=== PATIENT | male | born 1940 | race Caucasian/White ===

== ENCOUNTER 2020-09-10 13:30 | Outpatient (RCR) | payer MEDICARE, SELFPAY ==
--- NOTE | 2020-08-18 16:15 | PTOPEVAL ---
INITIAL PHYSICAL THERAPY EVALUATION and PLAN OF CARE Thank you for referring Rich Coelho to [facility].? Rich is scheduled to be seen for physical therapy? 1-2x/week for 4 weeks. Please review, sign, date and return this plan of care DOM. I agree with and certify that the following plan of care is medically necessary. Referring Physician Date Admitting Provider: Attending Provider: Yung Levin, Referring Provider: *PT Outpatient Evaluation Start: 08/18/20 14:39 Freq: Status: Active Protocol: Document 08/18/20 14:39 ANGELA (Rec: 08/18/20 16:14 ANGELA [id number]) Therapy Assessment Status Assessment Status Assessment Status Evaluation Outpatient Past Medical History Past Medical History Source of Past Medical History Patient Neurological History Hx Transient Ischemic Attacks (TIA) Yes: transient L hand weakness Respiratory History Hx Respiratory Disorders No Significant History Gastrointestinal History Hx Gastrointestinal Disorders No Significant History Genitourinary History Hx Genitourinary Disorders No Significant History Musculoskeletal History Hx Back Pain Yes: receiving injections SIJ Hx Other Musculoskeletal Disorders Yes: R hip adductor strained, neck pain Endocrine History Hx Diabetes Yes Evaluation Information Problem Diagnosis Poor balance Onset ~5 years Subjective Information 2 falls within last few days - Query Text:As Reported By Patient/ tripped over slider threshold Family - didn't fully clear L foot, fell forward Other fall - loss balance backwards - unable to catch balance - fell backwards Has had episodes with losing balance posteiorly but usually catches himself. Pt states that he was going to hospital for PT - fell off of the ball R thigh went into abduction - increased strain with hip adductors Feeling weakness with both thighs/ Quads. 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 Wears foot orthotics, BEAST model of Estevez shoes. 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
--- NOTE | 2020-09-15 10:35 | PCPTNOTE ---
Patient called & cancelled scheduled appointment this date due to illness. Today was his re-eval appointment. He is to call back to reschedule this appointment.
--- NOTE | 2020-09-24 16:12 | PCPTNOTE ---
PHYSICAL THERAPY DISCHARGE SUMMARY Admitting Provider: Attending Provider: Yung Levin, Patient:Rich Coelho Date of :1940 Rich has not returned for any further treatments since 09/10/2020, therefore he will be discharged at this time. Patient?s initial visit was on 08/18/2020 14:30 and he had a total of 7 visits. He called to cancel his 09/15/2020 re-evaluation appointment due to illness. I phoned his home 09/22/2020 and left a phone message in regards to how he was doing and if he would want to reschedule his re-evaluation appointment. I have not heard back from him. The goals have generally been met. I was unable to retest TUG, Buchanan balance, and 5 sit to stand tests. He has not had a fall since his initial appointment and he was doing well with all of the balance activities in PT treatment. Thank you for referring Rich to [facility]. Please review, sign, date and return this discharge summary DOM. I have been updated about Rich's current status and I agree with discharge from the above service at this time. Referring Physician Date
== END 2020-09-27 11:33 | disposition home or self-care (01) ==
LOC: ANHHIPT 13:30
PROVIDERS: PCP Internal Medicine; Visit Provider Internal Medicine
DX: R26.81 Unsteadiness on feet (principal)
CPT/HCPCS: 97110; 97162

== ENCOUNTER 2022-07-27 13:04 | Inpatient (IN) | payer MEDICARE, SELFPAY ==
--- NOTE | ~2022-07-27 | US_ITS ---
EXAMINATION: US venous doppler [facility] DATE: 07/27/2022 14:45 INDICATION: Left lower limb pain and swelling. TECHNIQUE: Grayscale ultrasound images without and with compression and Doppler ultrasound images of the left lower extremity veins were obtained. COMPARISON: None. FINDINGS: The visualized portions of left common femoral vein, profunda (deep) femoral vein, femoral vein, popl iteal vein, peroneal veins, posterior tibial veins, and greater saphenous vein outflow are patent. IMPRESSION: 1. No deep venous thrombosis. Reviewed, dictated and finalized at location A.
--- NOTE | ~2022-07-27 | XR_ITS ---
EXAMINATION: XR foot LT min 3V DATE: 07/27/2022 13:25 INDICATION: Wound with erythema at the plantar left forefoot TECHNIQUE: Dorsoplantar, two oblique and lateral views of the left foot were obtained. COMPARISON: None. FINDINGS: Bone alignment is normal. No fracture. Heterotopic ossicles along the tip the medial malleolus likely sequela of chronic medial ankle sprain. Mild polyarticular osteoarthritis at the first and fifth met atarsophalangeal joints and multiple tarsometatarsal and interphalangeal joints. No cortical erosions or periosteal reaction to suggest osteomyelitis. Moderate-sized plantar calcaneal spur. Scattered va scular calcifications. Soft tissues are otherwise unremarkable. IMPRESSION: 1. Mild polyarticular osteoarthritis in the mid and forefoot. No acute osseous abnormality. Reviewed, dictated and finalized at location A.
--- NOTE | ~2022-07-27 | CT_ITS ---
EXAMINATION: CTA BRAIN/CAROTID DATE: 07/28/2022 10:56 INDICATION: Right-sided facial droop TECHNIQUE: Computed tomographic angiography (CTA) of the head and neck was performed with 100 mL Omni paque-350 intravenous contrast. Multiplanar reconstructions and maximum intensity projection 3D-recon structions of the carotid arteries and of the intracranial arteries were created by the technologist on a separate workstation. Precontrast CT of the head was also obtained. Automated exposure control and iterative reconstruction technique were employed.The dose-length product was 1800.12 mGy-cm. COMPARISON: None. FINDINGS: Carotid arteries: Minimal atherosclerotic plaque at the visualized aortic arch which along with the great vessels arisi ng from the arch is otherwise normal with no aneurysm, dissection or stenosis. There is minimal amoun t of atherosclerotic plaque with 0% stenosis of the right carotid bulb relative to normal distal kevin ry lumen diameter (NASCET criteria). There is no evident plaque with 0% stenosis of the left carotid bulb relative to normal distal artery lumen diameter. The soft tissues are unremarkable. Visualized l ungs are clear. Cervical spondylosis with moderate disc height loss at T2-C4 and mild disc height los s at C2 5 C6 and multilevel bilateral moderate and severe cervical facet osteoarthritis. Head: No acute intracranial hemorrhage, acute infarction or abnormal extra axial fluid collection. Small ol d lacunar infarct at the anterior limb of the right internal capsule. There is mild scattered white m atter hypoattenuation consistent with chronic small vessel ischemic disease. Symmetric prominence of the sulci and subarachnoid spaces overlying the convexities consistent with mild age-appropriate diff use cerebral volume loss. Ventricles are normal and symmetric. No mass/mass effect. The orbits, paran sincere sinuses and mastoid air cells are normal. Intracranial arteries Small amount of nonhemodynamically significant atherosclerotic plaque at the bilateral carotid siphon s. There is no hemodynamically significant stenosis in the vertebral, basilar and internal carotid ar teries. Vertebral arteries are codominant. There are no aneurysms identified. Both A1 and P1 segment s are patent. Cerebral arterial arborization appears symmetric. No abnormally enhancing brain lesion s. IMPRESSION: 1. 0% stenosis of the right and left carotid bulbs relative to normal distal artery lumen diameter (N ASCET criteria). 2. Normal cerebral CT angiogram. 3. 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 4. Age-related changes in the brain including mild cerebral atrophy and mild scattered white matter h ypoattenuation consistent with chronic small vessel ischemic disease. Reviewed, dictated and finalized at location A. IMPRESSION: 1. 0% stenosis of the right and left carotid bulbs relative to normal distal ar mu lumen diameter (NASCET criteria). 2. Normal cerebral CT angiogram. 3. 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 4. Age-related changes in the brain including mild cerebral atrophy and mild sc attered white matter hypoattenuation consistent with chronic small vessel ische jennifer disease.
--- NOTE | ~2022-07-27 | MR_ITS ---
EXAMINATION: MR brain/brain stem wo con DATE: 07/28/2022 16:42 INDICATION: Facial weakness. TECHNIQUE: Magnetic resonance imaging (MRI) of the brain and brainstem was performed without intraven ous contrast. COMPARISON: Head CT 07/28/2022 FINDINGS: There is a small area of encephalomalacia in left thalamus with focus of old blood products . There are scattered areas of nonspecific increased T2-weighted signal intensity in the cerebral whi te matter and melita. There is no acute ischemic infarct or abnormal mass lesion. There is an old infar ct involving the genu of the right internal capsule. The ventricles are normal in size. There is an o ld blowout fracture of medial wall of right orbit. There is mild mucosal thickening in the paranasal sinuses. The mastoid air cells are normal. IMPRESSION: 1. 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 2. Small area of old encephalomalacia in left thalamus. 3. Moderate nonspecific cerebral white matter disease, which likely represents chronic small vessel i schemic disease. Reviewed, dictated and finalized at location A. IMPRESSION: 1. 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 2. Small area of old encephalomalacia in left thalamus. 3. Moderate nonspecific cerebral white matter disease, which likely represents chronic small vessel ischemic disease.
--- NOTE | ~2022-07-27 | CT_ITS ---
EXAMINATION: CT foot LT wo con DATE: 07/27/2022 14:50 INDICATION: Left foot cellulitis. TECHNIQUE: Computed tomography (CT) of the left foot was performed without intravenous contrast. Auto mated exposure control and iterative reconstruction technique were employed. The dose-length product was 560.01 mGy-cm. COMPARISON: Left foot radiographs 07/27/2022 FINDINGS: There is severe fatty atrophy of much of the musculature. Vascular calcifications are noted . There is an ulcer medial to head of first metatarsal. Bone alignment is normal. No fracture. There is heterotopic ossification distal to medial malleolus. There is a well-corticated erosion at medial aspect of head of first metatarsal. There is mild osteoarthritis of ankle joint, subtalar joint, and many of the midfoot joints and forefoot joints. There are enthesophytes at the posterior and plantar aspects of calcaneal tuberosity. There is thickening of the plantar fascia, consistent with fasciitis . IMPRESSION: 1. Well-corticated erosion at medial aspect of head of first metatarsal. This finding may be secondar y to chronic osteomyelitis or gout. 2. Mild polyarticular osteoarthritis. Reviewed, dictated and finalized at location A. IMPRESSION: 1. Well-corticated erosion at medial aspect of head of first metatarsal. This f inding may be secondary to chronic osteomyelitis or gout. 2. Mild polyarticular osteoarthritis.
--- NOTE | ~2022-07-27 | XR_ITS ---
EXAMINATION: XR chest PICC line DATE: 08/01/2022 12:05 INDICATION: Central line placement. TECHNIQUE: A single frontal view of the chest was obtained. COMPARISON: None. FINDINGS: The lung volumes are small. There are airspace opacities at left lung base. Calcified left lung nodules and calcified left hilar lymph nodes are consistent with old granulomatous disease. No p leural effusion or pneumothorax. The heart size is normal. A left upper extremity peripherally insert ed central venous catheter (PICC) is seen with tip in the superior vena cava. IMPRESSION: 1. PICC tip in superior vena cava. 2. Airspace opacities at left lung base, consistent with atelectasis versus pneumonia. Reviewed, dictated and finalized at location A. IMPRESSION: 1. PICC tip in superior vena cava. 2. Airspace opacities at left lung base, consistent with atelectasis versus pne umonia.
[2022-07-27 13:07] VITALS: BP 190/72; PULSE 80; RESP 16; TEMP 36.3; O2SAT 96
[2022-07-27 13:25] LABS: Basophils Percent Auto 0.4 % (0.2-1.2); Eosinophils Percent Auto 0.2 % (0-4.4); Hematocrit 42.1 % (42.0-52.0); Hemoglobin 14.6 g/dL (14.0-18.0); Immature Granulocyte Absolute 0.04 K/mm3 (0.00-0.031); Immature Granulocyte Percent A 0.4 % (0-0.5); Lymphocytes Absolute Auto 1.23 K/mm3 (0.9-3.2); Lymphocytes Percent Auto 13.1 % (18.3-44.2); Mean Corpuscular HGB Conc 34.7 g/dl (32-36); Mean Corpuscular Hemoglobin 34.1 pg (26-34); Mean Corpuscular Volume 98.4 fl (80-100); Mean Platelet Volume 9.9 fl (7.4-10.4); Monocytes Absolute Auto 0.6 K/mm3 (0.1-0.6); Monocytes Percent Auto 6.8 % (2.6-8.5); Neutrophils Absolute Auto 7.4 K/mm3 (1.3-6.7); Neutrophils Percent Auto 79.1 % (45.5-73.1); Platelet Count Result 198 k/mm3 (150-375); Red Blood Count 4.28 M/mm3 (4.6-6.20); White Blood Count 9.4 K/mm3 (4.5-10.0)
[2022-07-27 13:36] LABS: Lactic Acid Reflex 3.7 mmol/L (0.7-2.0)
[2022-07-27 13:39] LABS: Alanine Aminotransferase 29 U/L (6-50); Albumin Level 4.4 g/dL (3.5-5.1); Alkaline Phosphatase 108 U/L (38-126); Anion Gap 17 mmol/L (8-16); Aspartate Amino Transferase 23 U/L (17-59); Bilirubin,Total 1.2 mg/dL (0.2-1.3); Blood Urea Nitrogen 19 mg/dL (9-20); CRP 5.2 mg/dL (<1.0); Calcium 9.4 mg/dL (8.4-10.2); Carbon Dioxide 26 mmol/L (22-30); Chloride 94 mmol/L (98-107); Estimated CRCL calculation 59 ml/min; Estimated Glomerular Filt Rate > 60; Glucose 453 mg/dL (65-110); Potassium 4.8 mmol/L (3.4-5.0); Sodium 137 mmol/L (137-145)
--- NOTE | 2022-07-27 14:14 | ED.WOUNDLAC ---
HPI - Wound/Laceration General Chief Complaint: Wound/Laceration Stated Complaint: infection to foot Time Seen by Provider: 07/27/22 13:52 History of Present Illness HPI narrative: 82-year-old male presents to the emergency room today for redness swelling and open wound to the bottom of his left foot. He reports that he noticed the blister on the bottom of his foot about a week ago and peeled the skin away. He he was seen by his primary care provider and another provider as well. He was prescribed doxycycline which she did not take. He was prescribed Keflex yesterday and he has taken 1 dose of this. The wound on the bottom of his foot has a black center. He has redness around the wound and to the top of his left foot. He says that it feels sore. He has a history of diabetic neuropathy. He has had some increased soreness and swelling going up the left leg. He denies having any fever or chills. Related Data Home Medications Medication Instructions Recorded Confirmed aspirin 81 mg tablet,delayed 81 mg PO DAILY 07/20/22 07/20/22 release (Adult Low Dose Aspirin) atorvastatin 20 mg tablet 20 mg PO DAILY 07/20/22 07/20/22 cholecalciferol (vitamin D3) 50 50 mcg PO DAILY 07/20/22 07/20/22 mcg (2,000 unit) capsule clopidogrel 75 mg tablet (Plavix) 75 mg PO DAILY 07/20/22 07/20/22 ezetimibe 10 mg tablet (Zetia) 10 mg PO DAILY 07/20/22 07/20/22 metformin 500 mg tablet 1,000 mg PO BID 07/20/22 07/20/22 omega 5-zxi-mqe-fish oil 300 1 cap PO DAILY 07/20/22 07/20/22 mg-1,000 mg capsule (Fish Oil) Allergies Allergy/AdvReac Type Severity Reaction Status Date / Time No Known Allergies Allergy Unverified 07/26/22 15:48 Review of Systems Review of Systems: CONSTITUTIONAL: Denies fever, chills, or sweats. EYES: Denies visual changes, redness, or discharge. ENT: Denies rhinorrhea, congestion, sore throat, or otalgia. CARDIOVASCULAR: Denies chest pain, palpitations, or edema. RESPIRATORY: Denies cough or dyspnea. GASTROINTESTINAL: Denies abdominal pain, nausea, vomiting, or diarrhea. GENITOURINARY: Denies dysuria or hematuria. SKIN: As per HPI MUSCULOSKELETAL: Left foot pain NEUROLOGIC: Denies headache, numbness, dizziness, or weakness. PSYCHIATRIC: Denies anxiety or depression. PMFSH Past Medical History Medical History Degenerative disc disease Diabetes Left foot drop Peripheral neuropathy TIA (transient ischemic attack) Social History Social History Smoking status: Never smoker Alcohol intake: never Substance use: never Gender identity (if verbalized by the patient): Male Agree to blood products: Yes Exam Narrative: GENERAL: Well-appearing, well-nourished, and in no acute distress. HEAD: Normocephalic, atraumatic. EYES: PERRLA and EOMI. NECK: Supple. No adenopathy or masses. No carotid bruits or JVD CHEST: Clear to auscultation. No respiratory distress. No wheezes rales or rhonchi HEART: Regular rate and rhythm. faint systolic murmur heard. Normal peripheral pulses. ABDOMEN: Soft, nontender, nondistended, normal active bowel sounds. EXTREMITIES: Normal range of motion. No edema. SKIN: open wound to the plantar surface of left foot, about 2 inch diameter with black eschar, skin thickening noted medially, erythema around the wound and to the entire great toe and medial dorsal surface of the foot, pulses intact NEURO: No focal deficits. Alert and oriented x3. PSYCH: Normal mood and affect. Course Course Emergency Course: 1529 Discussed with Mohini Vera NP, accepting patient for admission for cellulitis and diabetic foot ulcer. 1814 Dr. Xiong is signed out. General surgery consulted, Dr. Crook, for management of the foot ulcer. Vital Signs Vital signs: Vital Signs Temperature 36.3 C L 07/27/22 13:07 Pulse Rate 80 07/27/22 13:07 Respiratory Rate 16 07/27/22 13:07
[2022-07-27] MEDS: INSULIN HUMAN REGULAR (*BKC) 100 UNITS/ML 11 UNITS IV PUSH (14:48)
[2022-07-27 15:05] LABS: Appearance Urine Clear (Clear); Bilirubin Urine Negative (Negative); Blood Urine Negative (Negative); Color Urine Yellow (Yellow); Glucose Urine UA 3+ mg/dL (Negative); Ketones Urine Trace mg/dL (Negative); Leukocyte Esterase Ur Negative LEU/UL (Negative); Nitrate Urine Negative (Negative); Protein Urine Negative (Negative); Urobilinogen Urine 0.2 mg/dL (<2.0)
[2022-07-27 15:06] LABS: RBC Urine 0-2 /hpf (0-2); WBC Urine 0-3 /hpf
[2022-07-27 15:14] LABS: Add Urine Microscopic? YES
[2022-07-27 15:29] LABS: Beta-Hydroxybutyrate/Acetoacetate 0.21 mmol/L (0.02-0.27)
[2022-07-27] MEDS: SODIUM CHLORIDE 0.9% IV 500 ML IV CONT (16:00)
[2022-07-27 16:01] VITALS: BP 124/69; PULSE 65; RESP 17; O2SAT 98
[2022-07-27 16:07] LABS: Glucose Point of Care 356 mg/dl (65-105)
[2022-07-27 16:23] LABS: Reflex Lactic Acid Yes or No Add Lactic
[2022-07-27 16:54] LABS: Lactic Acid 2.2 mmol/L (0.7-2.0)
[2022-07-27 18:27] VITALS: BMI 33.6
[2022-07-27 18:30] VITALS: BMI 33.5
[2022-07-27 18:30] LABS: Glucose Point of Care 348 mg/dl (65-105)
[2022-07-27 18:31] VITALS: BP 168/75; PULSE 77; RESP 16; TEMP 35.9; O2SAT 96
[2022-07-27] MEDS: INSULIN ASPART (*BKC) 100 UNITS/ML 8 UNITS SUB-Q (18:36)
[2022-07-27 18:40] VITALS: O2SAT 96
--- NOTE | 2022-07-27 18:47 | ADMGEN ---
This patient, Rich Coelho, was admitted to 3 [facility] Surg Room 303-01 at 1810. Patient/family oriented to hospital policies and general routines including ID bracelet, bed and alarms, visiting hours, pain management, procedures, bathroom and other care routines, personal items, smoking policy, room service/diet, and visiting hours. Information on how to activate the Rapid Response Team has been discussed. Patient/Family are encouraged to report perceived risks to care and to ask questions if they do not understand what they are told or what they should do.
--- NOTE | 2022-07-27 20:01 | PM.IMHP ---
H&P: HPI History of Present Illness Date/Time: 07/27/22 20:01 Chief Complaint: Infection of his left foot Narrative: This is an 82-year-old diabetic patient who has a left footdrop and wears a brace. The patient stated that he noticed a blister on the bottom of his foot about a week ago. The patient stated that he thought that he had stepped on a piece to tape and it was a piece a tape when he went to pull away he had found that it was skin. The patient went to his primary care doctor and another provider as well. He was prescribed doxycycline but did not started. The patient was ordered Keflex yesterday and took 1 dose of this so far. The patient has approximately 3 x 3 ulcerated area with eschar tissue on the plantar surface near the left great toe. The patient also is diabetic and has neuropathy. The patient denies any fever chills. Surgery has been consulted. He does not have a white count. He has no fever chills. Foot CT was read as the following 1. Well-corticated erosion at medial aspect of head of first metatarsal. This finding may be secondary to chronic osteomyelitis or gout. 2. Mild polyarticular osteoarthritis. Venous Doppler was read as no deep vein thrombosis. The patient was started on Zosyn and vancomycin. The patient was given insulin in the emergency room as well as IV fluids and Zosyn and vancomycin. His blood sugars were noted to be 453, 356, and 348. Patient's lactic was 3.7 and is down to 2.2 now. C reactive protein 5.2. His beta hydroxybutyrate/acetoacetate was 0.21. The patient initially was going to be admitted to inpatient but then was changed to observation on the date of service of 07/27/2022. Review of Systems Review of Systems: See HPI All systems reviewed & are unremarkable except as noted in HPI and below Constitutional: Constitutional: Reports as per HPI and Reports no additional constitutional complaints Eyes: Eyes: Reports as per HPI and Reports no additional eye complaints ENT: Reports system reviewed and no additional complaints, except as documented and Reports Normal hearing present Cardiovascular: Cardiovascular: Reports no additional cardiovascular complaints Respiratory: Respiratory: Reports no additional respiratory complaints and Reports no additional respiratory complaints Gastrointestinal: Gastrointestinal: Reports as per HPI and Reports no additional gastrointestinal complaints Musculoskeletal: Musculoskeletal: Reports no additional musculoskeletal complaints Integumentary/Breasts: Skin/Breast: Reports system reviewed and no additional complaints, except as docu and Reports as per HPI Neurologic: Reports system reviewed and no additional complaints, except as documented, Reports as per HPI and Reports Normal hearing present Psychiatric: Psychiatric: Reports no additional psychiatric complaints and Reports as per HPI Endocrine: Endocrine: Reports no additional endocrine complaints Hematologic/Lymphatic: Hematologic/Lymphatic: Reports no additional hematologic/lymphatic complaints Allergic/Immunologic: Allergic/Immunologic: Reports no additional allergic/immunologic complaints [facility] Past Medical History Medical History (Updated 07/27/22 @ 21:39 by Mohini Quinones NP) Degenerative disc disease Diabetes Hyperlipidemia Hypothyroidism Left foot drop Peripheral neuropathy Peripheral neuropathy TIA (transient ischemic attack) Surgical History Surgical History (Updated 07/27/22 @ 21:36 by Mohini Quinones NP) No pertinent past surgical history Family History Family History (Updated 07/27/22 @ 21:38 by Mohini Quinones NP) Mother Diabetes mellitus Father Respiratory failure Social History Social History (Updated 07/27/22 @ 21:39 by Mohini Quinones NP) Social History: The patient is and lives with his . He has a son and a daughter. 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 He is a lifelong n
[2022-07-27 22:00] VITALS: BP 146/90; PULSE 74; RESP 18; TEMP 36.6; O2SAT 95
--- NOTE | 2022-07-28 | ECHO_ITS ---
Patient Info Name: Rich Coelho Age: 82 years : 1940 Gender: Male Ht: 70 in Wt: 233 lbs BSA: 2.32 m2 HR: 68 bpm BP: 142 / 78 mmHg Technical Quality: Poor Exam Date: 07/28/2022 2:48 PM Exam Location: [facility] Patient Status: Inpatient Admit Date: 07/27/2022 Staff Ordering Physician: Avi Ambrosio Pest Technician: Denise Baer RDCS Attending Provider: Kwesi Washington MD Referring Physician: Hebert AZUL; Exam Type: CA echo dop bubble study w con Study Info Indications - LEFT SIDE FACIAL DROOP R01.1 - Cardiac murmur, unspecified Complete two-dimentional, color flow and Doppler transthoracic echocardiogram is performed with agitated saline and with contrast to opacify the left ventricle and to improve the delineation of the left ventricle endocardial borders. Contrast/Agitated Saline Contrast/Ag. Saline: Agitated Saline Amount: 20.00 ml Administered By: Lorraine Haq RDCS Existing IV Access: Yes IV Access Condition: patent with no signs of infiltration Contrast/Ag. Saline: Definity Amount: 8.00 ml Administered By: Denise Baer RDCS Existing IV Access: Yes IV Access Condition: patent with no signs of infiltration Reason for Poor Study: poor echocardiographic windows Summary 1. Technically suboptimal study due to poor sonographic images. 2. Definity contrast administered did not improve wall motion interpretation. 3. Left ventricular chamber dimension is mildly enlarged. 4. Left ventricular systolic function is normal, estimated at 55-60%. 5. There is mildly increased left ventricular wall thickness. 6. The left ventricular diastolic function is grade I diastolic dysfunction. 7. There is moderate aortic valve sclerosis. 8. There is mild aortic valve stenosis by visual estimation. However, peak velocity of 84 cm/s, mean gradient of 2 mmHg, and aortic valve area of 3.1 cm2 are within normal limits. 9. There is trivial pericardial effusion. Left Ventricle Definity contrast administered did not improve wall motion interpretation. Technically suboptimal study due to poor sonographic images. Left ventricular chamber dimension is mildly enlarged. Left ventricular systolic function is normal, estimated at 55-60%. There is mildly increased left ventricular wall thickness. The left ventricular diastolic function is grade I diastolic dysfunction. Right Ventricle Right ventricular chamber dimension is normal. Right ventricular systolic function is normal. Left Atria Left atrial chamber dimension is normal. Right Atria Right atrial chamber dimension is normal. Atrial Septum Agitated saline injection with and without valsalva maneuver opacified right side cardiac chambers without obvious shunt to left side cardiac chambers. Intact interatrial septum visualized by 2D and agitated saline imaging. Aortic Valve There is mild aortic valve stenosis by visual estimation. However, peak velocity of 84 cm/s, mean gradient of 2 mmHg, and aortic valve area of 3.1 cm2 are within normal limits. The aortic valve is trileaflet. There is moderate aortic valve sclerosis. There is no aortic valve regurgitation. Mitral Valve There is no mitral valve stenosis. There is no mitral valve regurgitation. Tricuspid Valve There is no tricuspid valve regurgitation. Pericardium/Pleural There is trivial pericardial effusion. Inferior Vena Cava Nedar
[2022-07-28 06:00] VITALS: BP 142/78; PULSE 80; RESP 18; TEMP 36.6; O2SAT 96
[2022-07-28] MEDS: LEVOTHYROXINE SODIUM 150 MCG TABLET PO (06:02)
[2022-07-28 07:47] LABS: Basophils Percent Auto 0.5 % (0.2-1.2); Eosinophils Absolute Auto 0.1 K/mm3 (0-0.3); Eosinophils Percent Auto 1.3 % (0-4.4); Hematocrit 42.1 % (42.0-52.0); Hemoglobin 14.2 g/dL (14.0-18.0); Immature Granulocyte Absolute 0.03 K/mm3 (0.00-0.031); Immature Granulocyte Percent A 0.5 % (0-0.5); Lymphocytes Absolute Auto 1.03 K/mm3 (0.9-3.2); Lymphocytes Percent Auto 16.9 % (18.3-44.2); Mean Corpuscular HGB Conc 33.7 g/dl (32-36); Mean Corpuscular Hemoglobin 33.2 pg (26-34); Mean Corpuscular Volume 98.4 fl (80-100); Monocytes Absolute Auto 0.5 K/mm3 (0.1-0.6); Monocytes Percent Auto 7.6 % (2.6-8.5); Neutrophils Absolute Auto 4.5 K/mm3 (1.3-6.7); Neutrophils Percent Auto 73.2 % (45.5-73.1); Platelet Count Result 188 k/mm3 (150-375); Red Blood Count 4.28 M/mm3 (4.6-6.20); Red Cell Distribution Width 11.9 % (11.5-14.5); White Blood Count 6.1 K/mm3 (4.5-10.0)
[2022-07-28 07:56] LABS: Glucose Point of Care 347 mg/dl (65-105)
--- NOTE | 2022-07-28 08:11 | PM.CNGS ---
Assessment and Plan Assessment and plan (1) Diabetic foot ulcer: Code(s): E11.621 - Type 2 diabetes mellitus with foot ulcer; L97.509 - Non-pressure chronic ulcer of other part of unspecified foot with unspecified severity Status: Acute Assessment and Plan: debrided at bedside, local wound care c santyl, no s/s active infection, local wound care (2) Diabetes: Code(s): E11.9 - Type 2 diabetes mellitus without complications Status: Acute Assessment and Plan: needs better control, d/w pt re: importance of compliance c meds History of Present Illness Consult details Consult date: 07/28/22 Reason for consult: wound care Requesting physician: Kwesi Washington MD Narrative: Pt is a 82 y/o M c poorly controlled DM, peripheral neuropathy presenting for worsening wound on L foot. Pt reports he first noticed area about a wk ago. Pt reports the area is progressively getting larger and more swollen. Pt seen by his PCP and started on po abx. Pt reports increased sloughing of the skin and redness prompting ED visit. Review of Systems Constitutional: Constitutional: Reports as per HPI, Denies anorexia, Denies chills, Denies fatigue, Denies fever(s), Denies increased appetite, Denies lethargy, Denies malaise, Denies poor appetite, Denies weakness, Denies weight gain and Denies weight loss Eyes: Eyes: Reports no additional eye complaints ENT: Reports system reviewed and no additional complaints, except as documented Cardiovascular: Cardiovascular: Reports no additional cardiovascular complaints Respiratory: Respiratory: Reports no additional respiratory complaints Gastrointestinal: Gastrointestinal: Reports no additional gastrointestinal complaints Genitourinary: Genitourinary: Reports no additional male genitourinary complaints Musculoskeletal: Musculoskeletal: Reports as per HPI, Reports abnormal gait and Reports numbness Integumentary/Breasts: Skin/Breast: Reports system reviewed and no additional complaints, except as docu Neurologic: Reports system reviewed and no additional complaints, except as documented Psychiatric: Psychiatric: Reports no additional psychiatric complaints Endocrine: Endocrine: Reports no additional endocrine complaints Hematologic/Lymphatic: Hematologic/Lymphatic: Reports no additional hematologic/lymphatic complaints Allergic/Immunologic: Allergic/Immunologic: Reports no additional allergic/immunologic complaints PMFSH Past Medical History Medical History Degenerative disc disease Diabetes Hyperlipidemia Hypothyroidism Left foot drop Peripheral neuropathy Peripheral neuropathy TIA (transient ischemic attack) Surgical History Surgical History No pertinent past surgical history Family History Family History Mother Diabetes mellitus Father Respiratory failure Social History Social History Social History: The patient is and lives with his . He has a son and a daughter. 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 He still continues to work in his [employer] shop. He is a lifelong nonsmoker. He does not use any alcohol marijuana or illicit drugs. Code status full code Smoking status: Never smoker Alcohol intake: never Substance use: never Gender identity (if verbalized by the patient): Male Spiritual care concerns: Yes Agree to blood products: Yes Meds Home Medications and Allergies Home Medications Medication Instructions Recorded Confirmed Type levothyroxine 150 mcg capsule 150 mcg PO DAILY #90 caps 06/18/22 07/27/22 Rx aspirin 81 mg tablet,delayed 81 mg PO DAILY 07/20/22 07/27/22 History release (Adult Low Dose Aspirin) atorvastatin 20 mg tablet 20 mg PO DAILY 07/20/22 07/27/22 History cholecalciferol (vit
[2022-07-28 08:14] LABS: Lactic Acid Reflex 1.3 mmol/L (0.7-2.0)
[2022-07-28] MEDS: INSULIN ASPART (*BKC) 100 UNITS/ML SUB-Q ×3 (09:12→16:52)
[2022-07-28] MEDS: ASPIRIN 81 MG ENTERIC TABLET PO (09:12)
[2022-07-28] MEDS: CLOPIDOGREL BISULFATE 75 MG TABLET PO (09:12)
[2022-07-28] MEDS: ATORVASTATIN 20 MG TABLET PO (09:12)
[2022-07-28 09:21] LABS: Alanine Aminotransferase 24 U/L (6-50); Albumin Level 3.8 g/dL (3.5-5.1); Alkaline Phosphatase 84 U/L (38-126); Anion Gap 12 mmol/L (8-16); Aspartate Amino Transferase 20 U/L (17-59); Bilirubin,Total 1.3 mg/dL (0.2-1.3); Blood Urea Nitrogen 16 mg/dL (9-20); Calcium 8.8 mg/dL (8.4-10.2); Carbon Dioxide 27 mmol/L (22-30); Chloride 97 mmol/L (98-107); Estimated CRCL calculation 73 ml/min; Estimated Glomerular Filt Rate > 60; Glucose 295 mg/dL (65-110); Lactate Dehydrogenase 152 U/L (120-246); Magnesium 1.9 mg/dL (1.6-2.3); Phosphorus 3.7 mg/dL (2.5-4.5); Potassium 4.1 mmol/L (3.4-5.0); Sodium 136 mmol/L (137-145)
[2022-07-28 09:24] LABS: Thyroid Stimulating Hormone Reflex 0.575 uIU/mL (0.465-4.68)
--- NOTE | 2022-07-28 09:30 | PM.IMPN ---
Progress Note: A&P Assessment and Plan (1) Cellulitis of foot, left: Code(s): L03.116 - Cellulitis of left lower limb Status: Acute Assessment and Plan: -Foot xray Mild polyarticular osteoarthritis in the mid and forefoot. No acute osseous abnormality. -Foot CT Well-corticated erosion at medial aspect of head of first metatarsal. This finding may be secondary to chronic osteomyelitis or gout. -Seems to be chronic, does have outpatient wound care set up -Recently started cephalexin at home -wound and blood cultures are pending. -surgery has been consulted. -wound care consult -Started on Zosyn and vancomycin, switched to cefepime and vanc -monitor CBC (2) Diabetes: Code(s): E11.9 - Type 2 diabetes mellitus without complications Status: Acute Assessment and Plan: -Current glucose 295 -Accu-Cheks AC and HS. -A1c 9.3 -hold metformin -moderate dose sliding scale insulin, increase to high -Add some lantus -Hypoglycemic protocol -Trend glucose -Adjust therapy as indicated (3) Peripheral neuropathy: Code(s): G62.9 - Polyneuropathy, unspecified Status: Acute Assessment and Plan: -Chronic problem -probably helping the cause for the wound -Start gabapentin for numbness and tingling (4) Hyperlipidemia: Code(s): E78.5 - Hyperlipidemia, unspecified Status: Acute Assessment and Plan: -continue with Lipitor (5) Hypothyroidism: Code(s): E03.9 - Hypothyroidism, unspecified Status: Acute Assessment and Plan: -thyroid level 0.575 -continue levothyroxine (6) CVA (cerebral vascular accident): Code(s): I63.9 - Cerebral infarction, unspecified Status: Chronic Assessment and Plan: Head and Neck CTA 0% stenosis of the bilateral carotid arteries, small old infarct of the anterior limb of the right internal capsule MRI ordered Echo ordered Appears to be old, however, prominent right sided facial droop, which patient stated he did not have prior to coming in Probably related to uncontrolled glucose Consider Neurology consult Currently on aspirin, atorvastatin, Plavix (7) Cardiac murmur: Code(s): R01.1 - Cardiac murmur, unspecified Status: Acute Assessment and Plan: Noted on the left sternal boarder Echo ordered Has outpatient follow up already scheduled Time Spent With Patient Time with patient: Greater than 35 minutes Subjective Date/time seen: 07/28/22929 Interval history: 07/28/22929 Patient stated that he feels okay. He denies any chest pain, shortness of breath, nausea, vomiting, sweats, fevers, chills. He did state that he is having some tingling in his feet however it is dissipating. He does state that his pain is mostly in his leg and will pulsate talk to his foot. He also describes his pain is intermittent. I did ask him about his right-sided facial droop which he stated looked a little bit different from what he is used to. He stated about 2 years ago he had thought he had a stroke has left-sided work. He was worked up however nothing ever came of it. He also has a murmur that he is aware of and has an appointment to get follow-up with. The left foot does appear to be red, swollen, warm. The wound despite his foot is probably a half dollar size may be larger and black. He denies checking his blood sugar on a daily basis and states that he has a lot of cookies. 07/27/22? 20:01 This is an 82-year-old diabetic patient who has a left footdrop and wears a brace.? The patient stated that he noticed a blister on the bottom of his foot about a week ago.? The patient stated that he thought that he had stepped on a piece to tape and it was a piece a tape when he went to pull away he had found that it was skin.? The patient went to his primary care doctor and another provider as well.? He was prescribed doxycycli
[2022-07-28] MEDS: VANCOMYCIN HCL 1,500 MG in SODIUM CHLORIDE 0.9% IV 500 ML 333.33 MG IVPB (10:36)
[2022-07-28] MEDS: SILVERGEL (ELTA) 45 ML 1 APPLIC TOPICAL (10:37)
[2022-07-28] MEDS: COLLAGENASE OINT 30 GM TUBE 1 APPLIC TOPICAL (10:37)
[2022-07-28 10:44] LABS: Hemoglobin A1C 9.3 % (<5.7)
[2022-07-28 11:22] LABS: Glucose Point of Care 337 mg/dl (65-105)
--- NOTE | 2022-07-28 12:27 | WPDCDIQUERY2 ---
CDI Query Clarification Request 07/27 General Surgery documented: Assessment and plan (1) Diabetic foot ulcer: ?Code(s): E11.621 - Type 2 diabetes mellitus with foot ulcer; L97.509 - Non-pressure chronic ulcer of other part of unspecified foot with unspecified severity ?Status:?Acute ?Assessment and Plan: debrided at bedside, local wound care c santyl, no s/s active infection, local wound care Please specify additional information regarding the patient's debridement on diabetic foot ulcer. Excisional or Non Excisional Depth: -Skin -Subcutaneous tissue -Soft tissue -Fascia -Muscle -Bone <Makayla Bergeron - Last Filed: 07/28/22 12:32> Provider Comments excisional skin and sq tissue done by wound care nurse <Latesha Crook MD - Last Filed: 07/31/22 07:28>
[2022-07-28 14:33] VITALS: BP 121/92; PULSE 65; RESP 16; TEMP 36.3; O2SAT 95
[2022-07-28] MEDS: PERFLUTREN LIPID MICROSPHERES 1.5 ML VIAL DILUTED TO 10 ML TOTAL VOLUME IV PUSH (15:15)
[2022-07-28 16:11] LABS: Glucose Point of Care 265 mg/dl (65-105)
[2022-07-28 22:00] VITALS: BP 145/66; PULSE 63; RESP 18; TEMP 36.4; O2SAT 95
[2022-07-28 22:23] LABS: Glucose Point of Care 292 mg/dl (65-105)
[2022-07-29] MEDS: VANCOMYCIN HCL 1,500 MG in SODIUM CHLORIDE 0.9% IV 500 ML 333.33 MG IVPB ×2 (04:28→22:29)
[2022-07-29] MEDS: LEVOTHYROXINE SODIUM 150 MCG TABLET PO (05:49)
[2022-07-29 06:00] VITALS: BP 151/82; PULSE 61; RESP 18; TEMP 36.8; O2SAT 95
[2022-07-29 06:11] LABS: Basophils Percent Auto 0.7 % (0.2-1.2); Eosinophils Absolute Auto 0.2 K/mm3 (0-0.3); Eosinophils Percent Auto 2.6 % (0-4.4); Hematocrit 40.6 % (42.0-52.0); Hemoglobin 13.7 g/dL (14.0-18.0); Immature Granulocyte Absolute 0.02 K/mm3 (0.00-0.031); Immature Granulocyte Percent A 0.3 % (0-0.5); Lymphocytes Absolute Auto 1.26 K/mm3 (0.9-3.2); Lymphocytes Percent Auto 20.9 % (18.3-44.2); Mean Corpuscular HGB Conc 33.7 g/dl (32-36); Mean Corpuscular Hemoglobin 33.3 pg (26-34); Mean Corpuscular Volume 98.5 fl (80-100); Mean Platelet Volume 9.7 fl (7.4-10.4); Monocytes Absolute Auto 0.4 K/mm3 (0.1-0.6); Monocytes Percent Auto 7.1 % (2.6-8.5); Neutrophils Absolute Auto 4.1 K/mm3 (1.3-6.7); Neutrophils Percent Auto 68.4 % (45.5-73.1); Platelet Count Result 179 k/mm3 (150-375); Red Blood Count 4.12 M/mm3 (4.6-6.20); Red Cell Distribution Width 11.9 % (11.5-14.5)
[2022-07-29 06:19] LABS: Alanine Aminotransferase 24 U/L (6-50); Albumin Level 3.6 g/dL (3.5-5.1); Alkaline Phosphatase 79 U/L (38-126); Anion Gap 12 mmol/L (8-16); Aspartate Amino Transferase 21 U/L (17-59); Bilirubin,Total 1.2 mg/dL (0.2-1.3); Blood Urea Nitrogen 15 mg/dL (9-20); Calcium 8.4 mg/dL (8.4-10.2); Carbon Dioxide 27 mmol/L (22-30); Chloride 97 mmol/L (98-107); Estimated CRCL calculation 73 ml/min; Estimated Glomerular Filt Rate > 60; Glucose 250 mg/dL (65-110); Magnesium 1.9 mg/dL (1.6-2.3); Potassium 3.9 mmol/L (3.4-5.0); Sodium 136 mmol/L (137-145)
[2022-07-29 07:43] LABS: Glucose Point of Care 228 mg/dl (65-105)
[2022-07-29] MEDS: INSULIN ASPART (*BKC) 100 UNITS/ML SUB-Q ×3 (08:36→16:59)
[2022-07-29] MEDS: CLOPIDOGREL BISULFATE 75 MG TABLET PO (08:37)
[2022-07-29] MEDS: ATORVASTATIN 20 MG TABLET PO (08:37)
[2022-07-29] MEDS: SILVERGEL (ELTA) 45 ML 1 APPLIC TOPICAL (08:37)
[2022-07-29] MEDS: ASPIRIN 81 MG ENTERIC TABLET PO (08:37)
[2022-07-29] MEDS: COLLAGENASE OINT 30 GM TUBE 1 APPLIC TOPICAL (08:37)
[2022-07-29] MEDS: GABAPENTIN 100 MG CAPSULE PO ×3 (08:37→16:59)
[2022-07-29] MEDS: ENOXAPARIN 40 MG/0.4 ML SYRINGE SUB-Q (08:37)
[2022-07-29] MEDS: INSULIN GLARGINE (*BKC) 100 UNITS/ML 9 UNITS SUB-Q (08:38)
[2022-07-29 09:49] VITALS: O2SAT 94
--- NOTE | 2022-07-29 10:00 | PM.IMPN ---
Progress Note: A&P Assessment and Plan (1) Cellulitis of foot, left: Code(s): L03.116 - Cellulitis of left lower limb Status: Acute Assessment and Plan: -Foot xray Mild polyarticular osteoarthritis in the mid and forefoot. No acute osseous abnormality. -Foot CT Well-corticated erosion at medial aspect of head of first metatarsal. This finding may be secondary to chronic osteomyelitis or gout. -Seems to be chronic, does have outpatient wound care set up -Recently started cephalexin at home -wound culture sees many gram negative bacilli, enterococcus species -blood cultures NGTD -surgery has been consulted. -wound care consult -Continue cefepime and vanc -monitor CBC (2) Diabetes: Code(s): E11.9 - Type 2 diabetes mellitus without complications Status: Acute Assessment and Plan: -Current glucose 250 -Accu-Cheks AC and HS. -A1c 9.3 -hold metformin -moderate dose sliding scale insulin, increase to high -Lantus 9 units daily -Daily roll looks to be about 18 -Hypoglycemic protocol -Trend glucose -Adjust therapy as indicated (3) Peripheral neuropathy: Code(s): G62.9 - Polyneuropathy, unspecified Status: Acute Assessment and Plan: -Chronic problem -probably helping the cause for the wound -Continue gabapentin 100mg PO TID (4) Hyperlipidemia: Code(s): E78.5 - Hyperlipidemia, unspecified Status: Acute Assessment and Plan: -continue with Lipitor (5) Hypothyroidism: Code(s): E03.9 - Hypothyroidism, unspecified Status: Acute Assessment and Plan: -thyroid level 0.575 -continue levothyroxine (6) CVA (cerebral vascular accident): Code(s): I63.9 - Cerebral infarction, unspecified Status: Chronic Assessment and Plan: Head and Neck CTA 0% stenosis of the bilateral carotid arteries, small old infarct of the anterior limb of the right internal capsule MRI small old infarct involving genu of the right internal capsule, small area of old encephalomalacia in the left thalamus Echo taken still pending read Appears to be old, however, prominent right sided facial droop, which patient stated he did not have prior to coming in Probably related to uncontrolled glucose Consider Neurology consult Currently on aspirin, atorvastatin, Plavix (7) Cardiac murmur: Code(s): R01.1 - Cardiac murmur, unspecified Status: Acute Assessment and Plan: Noted on the left sternal boarder Echo taken still pending read Has outpatient follow up already scheduled Time Spent With Patient Time with patient: Greater than 35 minutes Subjective Date/time seen: 07/29/22 10:00 Interval history: 07/29/22 1000 Patient seems to be doing okay. His foot is still swollen and his wound does not look any better. The redness has gone down however there is still lot heat and swelling to his foot. He did state that he would like to go home however I do not think that he has gotten any better. He denies any chest pain, nausea, vomiting, diarrhea, constipation. He did state that he has shortness of breath especially when he gets up to go the bathroom in the morning. He does have a cough however is nonproductive. 07/28/22 0930 Patient stated that he feels okay. He denies any chest pain, shortness of breath, nausea, vomiting, sweats, fevers, chills. He did state that he is having some tingling in his feet however it is dissipating. He does state that his pain is mostly in his leg and will pulsate talk to his foot. He also describes his pain is intermittent. I did ask him about his right-sided facial droop which he stated looked a little bit different from what he is used to. He stated about 2 years ago he had thought he had a stroke has left-sided work. He was worked up however nothing ever came of it. He also has a murmur that he is aware of and has an appoint
[2022-07-29 11:10] LABS: Glucose Point of Care 352 mg/dl (65-105)
[2022-07-29 14:00] VITALS: BP 134/65; PULSE 65; RESP 18; TEMP 36.2; O2SAT 94
[2022-07-29 16:15] LABS: Glucose Point of Care 301 mg/dl (65-105)
[2022-07-29 22:00] VITALS: BP 155/91; PULSE 65; RESP 18; TEMP 36.8; O2SAT 96
[2022-07-29 22:07] LABS: Vancomycin Trough 8.8 ug/mL (10.0-20.0)
[2022-07-29 22:36] LABS: Glucose Point of Care 283 mg/dl (65-105)
[2022-07-30] MEDS: INSULIN ASPART (*BKC) 100 UNITS/ML SUB-Q ×3 (01:08→12:03)
[2022-07-30 06:00] VITALS: BP 143/81; PULSE 59; RESP 17; TEMP 36.7; O2SAT 95
[2022-07-30] MEDS: LEVOTHYROXINE SODIUM 150 MCG TABLET PO (06:08)
[2022-07-30 06:24] LABS: Basophils Percent Auto 0.5 % (0.2-1.2); Eosinophils Absolute Auto 0.2 K/mm3 (0-0.3); Eosinophils Percent Auto 3.7 % (0-4.4); Hematocrit 39.3 % (42.0-52.0); Hemoglobin 13.6 g/dL (14.0-18.0); Immature Granulocyte Absolute 0.04 K/mm3 (0.00-0.031); Immature Granulocyte Percent A 0.7 % (0-0.5); Lymphocytes Absolute Auto 1.23 K/mm3 (0.9-3.2); Lymphocytes Percent Auto 21.7 % (18.3-44.2); Mean Corpuscular HGB Conc 34.6 g/dl (32-36); Mean Corpuscular Hemoglobin 33.8 pg (26-34); Mean Corpuscular Volume 97.8 fl (80-100); Mean Platelet Volume 9.8 fl (7.4-10.4); Monocytes Absolute Auto 0.4 K/mm3 (0.1-0.6); Neutrophils Absolute Auto 3.8 K/mm3 (1.3-6.7); Neutrophils Percent Auto 66.4 % (45.5-73.1); Platelet Count Result 185 k/mm3 (150-375); Red Blood Count 4.02 M/mm3 (4.6-6.20); Red Cell Distribution Width 11.9 % (11.5-14.5); White Blood Count 5.7 K/mm3 (4.5-10.0)
[2022-07-30 06:39] LABS: Alanine Aminotransferase 26 U/L (6-50); Albumin Level 3.5 g/dL (3.5-5.1); Alkaline Phosphatase 85 U/L (38-126); Anion Gap 13 mmol/L (8-16); Aspartate Amino Transferase 24 U/L (17-59); Bilirubin,Total 0.9 mg/dL (0.2-1.3); Blood Urea Nitrogen 14 mg/dL (9-20); Calcium 8.2 mg/dL (8.4-10.2); Carbon Dioxide 24 mmol/L (22-30); Chloride 98 mmol/L (98-107); Estimated CRCL calculation 83 ml/min; Estimated Glomerular Filt Rate > 60; Glucose 207 mg/dL (65-110); Potassium 3.7 mmol/L (3.4-5.0); Sodium 135 mmol/L (137-145)
[2022-07-30 07:31] LABS: Glucose Point of Care 204 mg/dl (65-105)
[2022-07-30] MEDS: ASPIRIN 81 MG ENTERIC TABLET PO (08:51)
[2022-07-30] MEDS: CLOPIDOGREL BISULFATE 75 MG TABLET PO (08:51)
[2022-07-30] MEDS: ATORVASTATIN 20 MG TABLET PO (08:51)
[2022-07-30] MEDS: metFORMIN HCL 500 MG TABLET 1000 MG PO ×2 (08:51→16:59)
[2022-07-30] MEDS: GABAPENTIN 100 MG CAPSULE PO ×3 (08:51→16:59)
[2022-07-30] MEDS: ENOXAPARIN 40 MG/0.4 ML SYRINGE SUB-Q (08:51)
[2022-07-30] MEDS: SILVERGEL (ELTA) 45 ML 1 APPLIC TOPICAL (08:52)
[2022-07-30] MEDS: glipiZIDE XL 2.5 MG TAB.ER.24 PO (08:52)
[2022-07-30] MEDS: COLLAGENASE OINT 30 GM TUBE 1 APPLIC TOPICAL (08:52)
[2022-07-30] MEDS: VANCOMYCIN HCL 1,500 MG in SODIUM CHLORIDE 0.9% IV 500 ML 333.33 MG IVPB ×2 (09:10→21:18)
--- NOTE | 2022-07-30 10:45 | PM.IMPN ---
Progress Note: A&P Assessment and Plan (1) Cellulitis of foot, left: Code(s): L03.116 - Cellulitis of left lower limb Status: Acute Assessment and Plan: -Foot xray Mild polyarticular osteoarthritis in the mid and forefoot. No acute osseous abnormality. -Foot CT Well-corticated erosion at medial aspect of head of first metatarsal. This finding may be secondary to chronic osteomyelitis or gout. -Seems to be chronic, does have outpatient wound care set up -Recently started cephalexin at home -wound culture enterococcus species, susceptibilities include ampicillin and vanc, Continue vanc for now -ID consult, think that the patient would be able to use ceftriaxone, and possible need a assisted course -If possible then he will need a picc line -blood cultures NGTD -surgery has been consulted. -wound care consult -monitor CBC (2) Diabetes: Code(s): E11.9 - Type 2 diabetes mellitus without complications Status: Acute Assessment and Plan: -Current glucose 207 -Accu-Cheks AC and HS. -A1c 9.3 -restart metformin and add glipizide 2.5mg daily -Glucose appears to be under 300 with the addition of the glipizide will increase to 5mg for tomorrow -moderate dose sliding scale insulin, increase to high -Lantus 9 units daily, stop for now -Hypoglycemic protocol -Trend glucose -Adjust therapy as indicated -Family is going to get the patient set up with a possible freestyle bessy post discharge, do not feel the patient would be able to do insulin at home. He does not appear to be interested in his blood glucose, hopefully the orals will help to sustain him. (3) Peripheral neuropathy: Code(s): G62.9 - Polyneuropathy, unspecified Status: Acute Assessment and Plan: -Chronic problem -probably helping the cause for the wound -Continue gabapentin 100mg PO TID (4) Hyperlipidemia: Code(s): E78.5 - Hyperlipidemia, unspecified Status: Acute Assessment and Plan: -continue with Lipitor (5) Hypothyroidism: Code(s): E03.9 - Hypothyroidism, unspecified Status: Acute Assessment and Plan: -thyroid level 0.575 -continue levothyroxine (6) CVA (cerebral vascular accident): Code(s): I63.9 - Cerebral infarction, unspecified Status: Chronic Assessment and Plan: Head and Neck CTA 0% stenosis of the bilateral carotid arteries, small old infarct of the anterior limb of the right internal capsule MRI small old infarct involving genu of the right internal capsule, small area of old encephalomalacia in the left thalamus Echo EF of 55-60% with grade 1 diastolic dysfunction, left vent wall thickening, aortic valve sclerosis Appears to be old, however, prominent right sided facial droop, which patient stated he did not have prior to coming in Probably related to uncontrolled glucose Consider Neurology consult Currently on aspirin, atorvastatin, Plavix (7) Cardiac murmur: Code(s): R01.1 - Cardiac murmur, unspecified Status: Acute Assessment and Plan: Noted on the left sternal boarder Echo EF of 55-60% with grade 1 diastolic dysfunction, left vent wall thickening, aortic valve sclerosis Has outpatient follow up already scheduled Please ensure ECHO results and images go with patient so that it can be presented at time of eval with manager statistics Time Spent With Patient Time with patient: Greater than 35 minutes Subjective Date/time seen: 07/30/22 104 Interval history: 07/30/221044 Patient is doing ok. His daughter and her are present. He does really want to go home, however, he grew enterococcus in the wound. He does have chronic osteomyelitis in his foot. It appears that the wound is doing ok, however, it seems that it might not be healing fast. He denies any current pain. blood glucose is a slight problem. Started patient on glipizide. Red
[2022-07-30 11:14] LABS: Glucose Point of Care 287 mg/dl (65-105)
[2022-07-30 14:00] VITALS: BP 140/91; PULSE 69; RESP 17; TEMP 36.3; O2SAT 96
[2022-07-30] MEDS: glipiZIDE 2.5 MG TABLET PO (15:26)
[2022-07-30 16:21] LABS: Glucose Point of Care 164 mg/dl (65-105)
[2022-07-30 21:57] LABS: Glucose Point of Care 184 mg/dl (65-105)
[2022-07-30 22:00] VITALS: BP 138/79; PULSE 62; RESP 16; TEMP 36.4; O2SAT 96
[2022-07-31 06:00] VITALS: BP 140/70; PULSE 55; RESP 14; TEMP 37.1; O2SAT 95
[2022-07-31] MEDS: LEVOTHYROXINE SODIUM 150 MCG TABLET PO (06:19)
[2022-07-31 07:35] LABS: Glucose Point of Care 147 mg/dl (65-105)
[2022-07-31] MEDS: ATORVASTATIN 20 MG TABLET PO (08:30)
[2022-07-31] MEDS: GABAPENTIN 100 MG CAPSULE PO ×3 (08:30→17:30)
[2022-07-31] MEDS: ASPIRIN 81 MG ENTERIC TABLET PO (08:30)
[2022-07-31] MEDS: metFORMIN HCL 500 MG TABLET 1000 MG PO ×2 (08:30→17:30)
[2022-07-31] MEDS: CLOPIDOGREL BISULFATE 75 MG TABLET PO (08:30)
[2022-07-31] MEDS: ENOXAPARIN 40 MG/0.4 ML SYRINGE SUB-Q (08:30)
[2022-07-31] MEDS: glipiZIDE XL 5 MG TABCR PO (08:30)
[2022-07-31 09:30] LABS: Basophils Percent Auto 0.4 % (0.2-1.2); Eosinophils Absolute Auto 0.2 K/mm3 (0-0.3); Eosinophils Percent Auto 2.4 % (0-4.4); Hematocrit 43.3 % (42.0-52.0); Hemoglobin 15.1 g/dL (14.0-18.0); Immature Granulocyte Absolute 0.03 K/mm3 (0.00-0.031); Immature Granulocyte Percent A 0.4 % (0-0.5); Lymphocytes Absolute Auto 1.22 K/mm3 (0.9-3.2); Lymphocytes Percent Auto 18.2 % (18.3-44.2); Mean Corpuscular HGB Conc 34.9 g/dl (32-36); Mean Corpuscular Hemoglobin 33.6 pg (26-34); Mean Corpuscular Volume 96.2 fl (80-100); Mean Platelet Volume 9.6 fl (7.4-10.4); Monocytes Absolute Auto 0.5 K/mm3 (0.1-0.6); Monocytes Percent Auto 7.3 % (2.6-8.5); Neutrophils Absolute Auto 4.8 K/mm3 (1.3-6.7); Neutrophils Percent Auto 71.3 % (45.5-73.1); Platelet Count Result 202 k/mm3 (150-375); Red Cell Distribution Width 11.8 % (11.5-14.5); White Blood Count 6.7 K/mm3 (4.5-10.0)
[2022-07-31 09:43] LABS: Alanine Aminotransferase 34 U/L (6-50); Albumin Level 3.9 g/dL (3.5-5.1); Alkaline Phosphatase 95 U/L (38-126); Anion Gap 13 mmol/L (8-16); Aspartate Amino Transferase 35 U/L (17-59); Bilirubin,Total 0.9 mg/dL (0.2-1.3); Blood Urea Nitrogen 13 mg/dL (9-20); Carbon Dioxide 26 mmol/L (22-30); Chloride 98 mmol/L (98-107); Estimated CRCL calculation 73 ml/min; Estimated Glomerular Filt Rate > 60; Glucose 196 mg/dL (65-110); Magnesium 1.9 mg/dL (1.6-2.3); Potassium 4.1 mmol/L (3.4-5.0); Sodium 137 mmol/L (137-145)
[2022-07-31 09:55] LABS: Vancomycin Trough 15.5 ug/mL (10.0-20.0)
[2022-07-31] MEDS: COLLAGENASE OINT 30 GM TUBE 1 APPLIC TOPICAL (10:31)
[2022-07-31] MEDS: SILVERGEL (ELTA) 45 ML 1 APPLIC TOPICAL (10:31)
[2022-07-31 11:20] LABS: Glucose Point of Care 204 mg/dl (65-105)
[2022-07-31] MEDS: INSULIN ASPART (*BKC) 100 UNITS/ML SUB-Q (11:50)
[2022-07-31 14:00] VITALS: BP 137/103; PULSE 70; RESP 16; TEMP 35.7; O2SAT 95
--- NOTE | 2022-07-31 14:49 | IDPHARM ---
Addendum entered by Leroy Virgen, Sulema 08/01/22 10:40: Based on recent trough, the patient may benefit from discharging on vancomycin IV 2000 mg q24h as is a more convenient regiment but looks to provide similar daily exposure. Dosing should be adjusted outpatient based on pharmacokinetic dosing as appropriate. Original Note: Subjective Pharmacy was consulted by Adolph Ambrosio regarding infectious diseases for Rich Coelho. Rich Coelho is a 82 year old M with concerns regarding chronic osteomyelitis. Background The patient is currently receiving Vancomycin. Additionally, imaging reveals potential osteomyelitis with a wound culture showing enterococcus. The patient's vancomycin trough is 15.5 mcg/mL. Assessment/Recommendation/Discussion Discussed with provider and noted that the patient is unlikely to go for additional debridement. If treating this as osteomyelitis then the patient would likely benefit from completing a 6 week course of intravenous vancomycin. Ampicillin was discussed, but ultimately, due to the high frequency of administrations per day, vancomycin was selected. Potentially, patient may benefit from suppressive therapy after the completion of the IV treatment with amoxicillin but will leave that decision to after the patient completes parenteral therapy between the appropriate providers and patient. Thank you for the interesting consult. Leroy Virgen, Sulema Infectious Disease/Antimicrobial Stewardship Pharmacist 07/31/22; [id number]
--- NOTE | 2022-07-31 14:52 | PM.IMPN ---
Progress Note: A&P Assessment and Plan (1) Cellulitis of foot, left: Code(s): L03.116 - Cellulitis of left lower limb Status: Acute Assessment and Plan: -Foot xray Mild polyarticular osteoarthritis in the mid and forefoot. No acute osseous abnormality. -Foot CT Well-corticated erosion at medial aspect of head of first metatarsal. This finding may be secondary to chronic osteomyelitis. -Treated with PO cephalexin prior to admission. -wound culture enterococcus species, susceptibilities include ampicillin and vanc, Continue vancomycin x 6 weeks at current dose. Patient needs a provider to manage antibiotics outpatient. -ID Pharm consulted and recommend continuing Vancomycin 1.5 grams Q18 hours. -Will plan to place PICC line for long-term IV antibiotics. -blood cultures negative to date. -surgery following and can manage patient in the wound clinic. -wound care consult -WBC 6.7 without bandemia, afebrile. (2) Diabetes: Code(s): E11.9 - Type 2 diabetes mellitus without complications Status: Acute Assessment and Plan: -Current glucose 207 -Accu-Cheks AC and HS. -A1c 9.3 -Continue metformin and add glipizide XL 5 mg daily; moderate dose sliding scale insulin, increase to high -Glucose 147-204 currently -Lantus 9 units stopped as patient unlikely to continue insulin at home. -consider adding SGLT-2 for better glucose control. -Hypoglycemic protocol -Adjust therapy as indicated -Family is going to get the patient set up with a possible freestyle bessy post discharge, do not feel the patient would be able to do insulin at home. He does not appear to be interested in his blood glucose, hopefully the orals will help to sustain him. (3) Peripheral neuropathy: Code(s): G62.9 - Polyneuropathy, unspecified Status: Chronic Assessment and Plan: -Chronic problem -probably helping the cause for the wound -Continue gabapentin 100mg PO TID (4) Hyperlipidemia: Code(s): E78.5 - Hyperlipidemia, unspecified Status: Chronic Assessment and Plan: -chronic, stable, continue with Lipitor (5) Hypothyroidism: Code(s): E03.9 - Hypothyroidism, unspecified Status: Chronic Assessment and Plan: -chronic, thyroid level 0.575, continue levothyroxine (6) CVA (cerebral vascular accident): Code(s): I63.9 - Cerebral infarction, unspecified Status: Chronic Assessment and Plan: - Possible acute worsening of chronic disease. Appears to be old, however, prominent right sided facial droop, which patient stated he did not have prior to coming in - Head and Neck CTA 0% stenosis of the bilateral carotid arteries, small old infarct of the anterior limb of the right internal capsule - MRI small old infarct involving genu of the right internal capsule, small area of old encephalomalacia in the left thalamus - Echo EF of 55-60% with grade 1 diastolic dysfunction, left vent wall thickening, aortic valve sclerosis - Continue aspirin, plavix, lipitor, BP and glucose control. - Consider Neurology consult if symptoms worsen. (7) Cardiac murmur: Code(s): R01.1 - Cardiac murmur, unspecified Status: Acute Assessment and Plan: - Noted on the left sternal boarder - Echo EF of 55-60% with grade 1 diastolic dysfunction, left vent wall thickening, aortic valve sclerosis - Has outpatient follow up already scheduled - Please ensure ECHO results and images go with patient so that it can be presented at time of eval with science job titles Time Spent With Patient Time with patient: 15 - 25 minutes Subjective Date/time seen: 07/31/22 14:52 Interval history: Patient is an 82-year-old male with history of uncontrolled diabetes admitted for management of right foot diabetic foot ulcer and chronic osteomyelitis. He denies new complaints or overnight events. he has not noticed any significant improvement in t
[2022-07-31] MEDS: VANCOMYCIN HCL 1,500 MG in SODIUM CHLORIDE 0.9% IV 500 ML 333.33 MG IVPB (15:16)
[2022-07-31 16:18] LABS: Glucose Point of Care 136 mg/dl (65-105)
[2022-07-31 21:35] VITALS: BP 148/67; PULSE 59; RESP 14; TEMP 36.1; O2SAT 95
[2022-07-31 22:34] LABS: Glucose Point of Care 177 mg/dl (65-105)
[2022-08-01] MEDS: LEVOTHYROXINE SODIUM 150 MCG TABLET PO (05:34)
[2022-08-01 05:38] VITALS: BP 152/71; PULSE 66; RESP 14; TEMP 36.2; O2SAT 92
[2022-08-01 07:51] LABS: Glucose Point of Care 193 mg/dl (65-105)
[2022-08-01] MEDS: ATORVASTATIN 20 MG TABLET PO (09:10)
[2022-08-01] MEDS: glipiZIDE XL 5 MG TABCR PO (09:10)
[2022-08-01] MEDS: CLOPIDOGREL BISULFATE 75 MG TABLET PO (09:10)
[2022-08-01] MEDS: GABAPENTIN 100 MG CAPSULE PO ×3 (09:10→16:01)
[2022-08-01] MEDS: metFORMIN HCL 500 MG TABLET 1000 MG PO ×2 (09:10→16:02)
[2022-08-01] MEDS: ENOXAPARIN 40 MG/0.4 ML SYRINGE SUB-Q (09:11)
[2022-08-01] MEDS: ASPIRIN 81 MG ENTERIC TABLET PO (09:11)
[2022-08-01] MEDS: LIDOCAINE HCL 1% PF INJ 5 ML VIAL INFILTRATE (11:20)
[2022-08-01] MEDS: VANCOMYCIN HCL 2,000 MG in SODIUM CHLORIDE 0.9% IV 500 ML 250 MG IVPB (12:03)
[2022-08-01 12:14] LABS: Glucose Point of Care 183 mg/dl (65-105)
--- NOTE | 2022-08-01 13:39 | PM.DS ---
DS: Admitting Diagnosis Discharge Date 08/01/2022 1654 Admitting Diagnosis Cellulitis, left foot diabetic foot ulcer, left foot type 2 diabetes mellitus with hyperglycemia DS: Discharge Diagnosis Discharge Diagnosis (1) Cellulitis of foot, left: Code(s): L03.116 - Cellulitis of left lower limb Status: Acute Assessment and Plan: -Foot xray Mild polyarticular osteoarthritis in the mid and forefoot. No acute osseous abnormality. -Foot CT Well-corticated erosion at medial aspect of head of first metatarsal. This finding may be secondary to chronic osteomyelitis. -Treated with PO cephalexin prior to admission. -wound culture enterococcus species, susceptibilities include ampicillin and vanc, Continue vancomycin x 6 weeks at current dose. Patient needs a provider to manage antibiotics outpatient. -ID Pharm consulted and recommend continuing Vancomycin, dose initially recommended as 1.5 grams Q18 hours, then 2 grams Q24 hours. After discussion with outpatient pharmacy Vancomycin 1.5 grams Q12 hours recommended. -PICC line for long-term IV antibiotics placed 08/01/22 -blood cultures negative x2 -surgery following and can manage patient in the wound clinic after dsicharge. (2) Chronic osteomyelitis: Code(s): M86.60 - Other chronic osteomyelitis, unspecified site Status: Acute Assessment and Plan: - Noted on CT, suggestive of chronic infection - IV antibiotics as above x 6 weeks. - PCP office to follow outpatient. 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 (4) Peripheral neuropathy: Qualifiers: Peripheral neuropathy type: polyneuropathy associated with underlying disease Qualified Code(s): G63 - Polyneuropathy in diseases classified elsewhere Code(s): G62.9 - Polyneuropathy, unspecified Status: Chronic Assessment and Plan: -Chronic, continue gabapentin 100mg PO TID (5) Hyperlipidemia: Qualifiers: Hyperlipidemia type: mixed hyperlipidemia Qualified Code(s): E78.2 - Mixed hyperlipidemia Code(s): E78.5 - Hyperlipidemia, unspecified Status: Chronic Assessment and Plan: -chronic, stable, continue with Lipitor (6) Hypothyroidism: Qualifiers: Hypothyroidism type: acquired Qualified Code(s): E03.9 - Hypothyroidism, unspecified Code(s): E03.9 - Hypothyroidism, unspecified Status: Chronic Assessment and Plan: -chronic, thyroid level 0.575, continue levothyroxine (7) CVA (cerebral vascular accident): Qualifiers: CVA mechanism: unspecified Qualified Code(s): I63.9 - Cerebral infarction, unspecified Code(s): I63.9 - Cerebral infarction, unspecified Status: Chronic Assessment and Plan: - right sided facial droop noted on physical exam, which patient stated he did not have prior - Head and Neck CTA 0% stenosis of the bilateral carotid arteries, small old infarct of the anterior limb of the right internal capsule - MRI small old infarct involving genu of the right internal capsule, small area of old encephalomalacia in the left thalamus - Echo EF of 55-60% with grade 1 diastolic dysfunction, left vent wall thickening, aortic valve sclerosis - Continue a
[2022-08-01 14:00] VITALS: BP 116/80; PULSE 61; RESP 19; TEMP 36.5; O2SAT 96
[2022-08-01] MEDS: SALINE LOCK FLUSH 10 ML IV PUSH (14:40)
[2022-08-01] MEDS: COLLAGENASE OINT 30 GM TUBE 1 APPLIC TOPICAL (16:01)
[2022-08-01 16:04] LABS: Glucose Point of Care 154 mg/dl (65-105)
[2022-08-01 16:30] VITALS: BMI 33.5
== END 2022-08-01 18:40 | disposition home health service (06) | DRG 638 ==
LOC: ANHED 16:56 → ANH3MEDSUR 18:00
PROVIDERS: Emergency Medicine; Nurse Practitioner; Admitting Provider Family Medicine; Emergency Provider Nurse Practitioner Family; Visit Provider Nurse Practitioner Family
DX: E11.621 Type 2 diabetes mellitus with foot ulcer (principal); L03.116 Cellulitis of left lower limb; M86.672 Other chronic osteomyelitis, left ankle and foot; E11.628 Type 2 diabetes mellitus with other skin complications; L97.529 Non-pressure chronic ulcer of other part of left foot with unspecified severity; B95.2 Enterococcus as the cause of diseases classified elsewhere; R29.810 Facial weakness; E11.42 Type 2 diabetes mellitus with diabetic polyneuropathy; E78.5 Hyperlipidemia, unspecified; E03.9 Hypothyroidism, unspecified; R01.1 Cardiac murmur, unspecified; M21.372 Foot drop, left foot; Z86.73 Personal history of transient ischemic attack (TIA), and cerebral infarction without residual deficits
CPT/HCPCS: 36415; 36569; 70496; 70498; 70551; 73630; 73700; 80053; 80202; 81001; 82010; 82948; 83036; 83605; 83615; 83735; 84100; 84443; 85025; 86140; 87040; 87070; 87147; 87181; 87186; 87205; 93971; 96366; 96367; 96372; 96375; 96376; 97161; 97165; 99285; A9270; C1751; C8929; G0378; J0692; J1650; J1815; J2543; J3370; J7040; Q9957; Q9967

== ENCOUNTER 2022-08-15 10:21 | Outpatient (RCR) | payer MEDICARE, SELFPAY ==
[2022-08-08 10:40] LABS: Hematocrit 40.7 % (42.0-52.0); Hemoglobin 13.8 g/dL (14.0-18.0); Mean Corpuscular HGB Conc 33.9 g/dl (32-36); Mean Corpuscular Hemoglobin 33.3 pg (26-34); Mean Corpuscular Volume 98.3 fl (80-100); Mean Platelet Volume 10.4 fl (7.4-10.4); Platelet Count Result 229 k/mm3 (150-375); Red Blood Count 4.14 M/mm3 (4.6-6.20); Red Cell Distribution Width 11.9 % (11.5-14.5); White Blood Count 5.7 K/mm3 (4.5-10.0)
[2022-08-08 10:51] LABS: Alanine Aminotransferase 35 U/L (6-50); Alkaline Phosphatase 89 U/L (38-126); Anion Gap 14 mmol/L (8-16); Aspartate Amino Transferase 28 U/L (17-59); Bilirubin,Total 0.7 mg/dL (0.2-1.3); Blood Urea Nitrogen 12 mg/dL (9-20); Calcium 9.2 mg/dL (8.4-10.2); Carbon Dioxide 27 mmol/L (22-30); Chloride 98 mmol/L (98-107); Estimated Glomerular Filt Rate > 60; Glucose 160 mg/dL (65-110); Sodium 139 mmol/L (137-145)
[2022-08-08 11:00] LABS: Vancomycin Trough 17.8 ug/mL (10.0-20.0)
[2022-08-15 10:51] LABS: Hematocrit 41.1 % (42.0-52.0); Hemoglobin 13.9 g/dL (14.0-18.0); Mean Corpuscular HGB Conc 33.8 g/dl (32-36); Mean Corpuscular Hemoglobin 33.5 pg (26-34); Mean Platelet Volume 10.8 fl (7.4-10.4); Platelet Count Result 162 k/mm3 (150-375); Red Blood Count 4.15 M/mm3 (4.6-6.20); Red Cell Distribution Width 12.2 % (11.5-14.5); White Blood Count 5.3 K/mm3 (4.5-10.0)
[2022-08-15 11:31] LABS: Alanine Aminotransferase 30 U/L (6-50); Alkaline Phosphatase 85 U/L (38-126); Anion Gap 10 mmol/L (8-16); Aspartate Amino Transferase 30 U/L (17-59); Blood Urea Nitrogen 15 mg/dL (9-20); Calcium 8.9 mg/dL (8.4-10.2); Carbon Dioxide 24 mmol/L (22-30); Chloride 102 mmol/L (98-107); Estimated Glomerular Filt Rate > 60; Glucose 120 mg/dL (65-110); Potassium 4.1 mmol/L (3.4-5.0); Sodium 136 mmol/L (137-145)
[2022-08-15 12:00] LABS: Vancomycin Trough 19.8 ug/mL (10.0-20.0)
== END 2022-11-06 23:59 | disposition home or self-care (01) ==
LOC: HOME HLTH 10:21
PROVIDERS: PCP Family Medicine; Visit Provider Family Medicine
DX: E11.621 Type 2 diabetes mellitus with foot ulcer (principal); Z79.2 Long term (current) use of antibiotics
CPT/HCPCS: 80053; 80202; 85027

== ENCOUNTER 2022-08-22 10:57 | Outpatient (NON) | payer MEDICARE, SELFPAY ==
[2022-08-22 12:06] LABS: Hematocrit 40.9 % (42.0-52.0); Hemoglobin 13.8 g/dL (14.0-18.0); Mean Corpuscular HGB Conc 33.7 g/dl (32-36); Mean Corpuscular Hemoglobin 33.3 pg (26-34); Mean Corpuscular Volume 98.6 fl (80-100); Mean Platelet Volume 10.3 fl (7.4-10.4); Platelet Count Result 165 k/mm3 (150-375); Red Blood Count 4.15 M/mm3 (4.6-6.20); Red Cell Distribution Width 12.2 % (11.5-14.5); White Blood Count 4.9 K/mm3 (4.5-10.0)
[2022-08-22 12:16] LABS: Alanine Aminotransferase 31 U/L (6-50); Albumin Level 4.2 g/dL (3.5-5.1); Alkaline Phosphatase 85 U/L (38-126); Anion Gap 13 mmol/L (8-16); Aspartate Amino Transferase 30 U/L (17-59); Blood Urea Nitrogen 15 mg/dL (9-20); Calcium 9.2 mg/dL (8.4-10.2); Carbon Dioxide 27 mmol/L (22-30); Chloride 99 mmol/L (98-107); Estimated Glomerular Filt Rate > 60; Glucose 131 mg/dL (65-110); Potassium 3.8 mmol/L (3.4-5.0); Sodium 139 mmol/L (137-145)
[2022-08-22 13:56] LABS: Vancomycin Trough 19.4 ug/mL (10.0-20.0)
== END 2022-08-22 10:58 | disposition home or self-care (01) ==
PROVIDERS: PCP Family Medicine; Visit Provider Family Medicine
DX: E11.621 Type 2 diabetes mellitus with foot ulcer (principal); L03.116 Cellulitis of left lower limb; Z45.2 Encounter for adjustment and management of vascular access device; Z79.2 Long term (current) use of antibiotics
CPT/HCPCS: 80053; 80202; 85027

== ENCOUNTER 2022-09-05 10:07 | Outpatient (RCR) | payer MEDICARE, SELFPAY ==
[2022-08-29 12:06] LABS: Hematocrit 41.6 % (42.0-52.0); Hemoglobin 14.2 g/dL (14.0-18.0); Mean Corpuscular HGB Conc 34.1 g/dl (32-36); Mean Corpuscular Volume 96.7 fl (80-100); Mean Platelet Volume 9.9 fl (7.4-10.4); Platelet Count Result 196 k/mm3 (150-375); Red Cell Distribution Width 12.1 % (11.5-14.5); White Blood Count 4.4 K/mm3 (4.5-10.0)
[2022-08-29 12:22] LABS: Anion Gap 12 mmol/L (8-16); Blood Urea Nitrogen 13 mg/dL (9-20); Carbon Dioxide 28 mmol/L (22-30); Chloride 101 mmol/L (98-107); Sodium 141 mmol/L (137-145)
[2022-08-29 12:23] LABS: Alanine Aminotransferase 37 U/L (6-50); Albumin Level 4.1 g/dL (3.5-5.1); Alkaline Phosphatase 90 U/L (38-126); Aspartate Amino Transferase 32 U/L (17-59); Bilirubin,Total 0.9 mg/dL (0.2-1.3); Calcium 8.9 mg/dL (8.4-10.2); Estimated Glomerular Filt Rate > 60; Glucose 148 mg/dL (65-110)
[2022-08-29 12:24] LABS: Vancomycin Trough 21.5 ug/mL (10.0-20.0)
[2022-09-01 12:01] LABS: Vancomycin Trough 15.9 ug/mL (10.0-20.0)
[2022-09-05 10:17] LABS: Hematocrit 40.3 % (42.0-52.0); Hemoglobin 13.6 g/dL (14.0-18.0); Mean Corpuscular HGB Conc 33.7 g/dl (32-36); Mean Corpuscular Hemoglobin 33.2 pg (26-34); Mean Corpuscular Volume 98.3 fl (80-100); Mean Platelet Volume 10.1 fl (7.4-10.4); Platelet Count Result 181 k/mm3 (150-375); Red Cell Distribution Width 12.1 % (11.5-14.5); White Blood Count 5.2 K/mm3 (4.5-10.0)
[2022-09-05 10:31] LABS: Alanine Aminotransferase 32 U/L (6-50); Alkaline Phosphatase 105 U/L (38-126); Anion Gap 10 mmol/L (8-16); Aspartate Amino Transferase 27 U/L (17-59); Bilirubin,Total 0.8 mg/dL (0.2-1.3); Blood Urea Nitrogen 14 mg/dL (9-20); Calcium 8.6 mg/dL (8.4-10.2); Carbon Dioxide 25 mmol/L (22-30); Chloride 103 mmol/L (98-107); Estimated Glomerular Filt Rate > 60; Glucose 128 mg/dL (65-110); Potassium 4.1 mmol/L (3.4-5.0); Sodium 138 mmol/L (137-145)
== END 2022-11-27 23:59 | disposition home or self-care (01) ==
LOC: HOME HLTH 10:07
PROVIDERS: PCP Family Medicine; Visit Provider Family Medicine
DX: Z51.81 Encounter for therapeutic drug level monitoring (principal); E11.621 Type 2 diabetes mellitus with foot ulcer; Z79.2 Long term (current) use of antibiotics
CPT/HCPCS: 80053; 80202; 85027

== ENCOUNTER 2022-11-01 07:24 | Outpatient (RCR) | payer MEDICARE, SELFPAY ==
--- NOTE | 2022-08-15 10:07 | PCWOUND ---
FLASHON NOTE 08/14/22: Patient's left voicemail stating that her had been referred to wound center for his feet wounds and that no one had contacted them. Spoke with patient directly stating that we spoke with his last sunday08/07/22 about referral and that since patient was in the hospital and saw a surgeon the week before that his follow up was supposed to be with Dr. Crook and that she needed to contact that office. Patient states that he did speak with someone from that office earlier today and that he had an appointment scheduled for Sunday08/21/22. Patient states he feels that is too long to wait and that since his PCP sent the referral to us he wanted to be seen here. Explained again that because he had seen a surgeon that there was nothing we could do here in the wound center without approval from the surgeon and that he needed to see him on the scheduled appointment date. 08/15/22 1008: Spoke with Danielle BENAVIDES for [facility] to get an update on patient's wounds, states right foot is a dry scab and that the plantar left foot wound is 95% dry black eschar that they are applying Santyl ointment to daily. No s/s of infection to the wound and that patient is currently on Vancomycin. States patient does not need to come into the wound center and that his wound is stable to see Dr Crook on Sunday08/21/22. Spoke with Ivet at Dr. Crook's office to update of status.
--- NOTE | 2022-08-31 12:55 | WPDWOUNDNOTE ---
Wound Care Note Date/Time: 08/31/22 12:55 History: Pt reports he is doing well, minimal drainage, no s/s active infection. Pt cont to see wound care nurse at home and is cont IV abx for osteo. Wound history: Wound has been serially debrided, last time in office by myself 2 wks ago Wound width: L plantar 3.6 R 1st toe .3 Wound length: L plantar 2.9 R 1st toe .3 Wound depth: L plantar 1.0 Drainage: minimal Surrounding tissue appearance: healthy Tunneling: none Percentage granulation tissue: eschar on L plantar Treatment/Procedures: debridement L plantar Dressings: santyl Assessment and Plan Assessment and plan (1) Diabetic foot ulcer: Code(s): E11.621 - Type 2 diabetes mellitus with foot ulcer; L97.509 - Non-pressure chronic ulcer of other part of unspecified foot with unspecified severity Status: Acute Assessment and Plan: debriement today in wound care, cont santyl, cont wound care, f/u 6 wks (2) Chronic osteomyelitis: Code(s): M86.60 - Other chronic osteomyelitis, unspecified site Status: Acute Assessment and Plan: cont IV abx per ID recs Review of Systems Review of Systems: All systems reviewed & are unremarkable except as noted in HPI and below Exam Const: General: cooperative, comfortable and no acute distress Resp: Auscultation: clear to auscultation bilaterally Cardio: Rate: regular rate Rhythm: regular rhythm GI: Inspection: normal to inspection
[2022-08-31 14:27] VITALS: BMI 33.5
--- NOTE | 2022-10-04 12:37 | WPDWOUNDNOTE ---
Wound Care Note Date/Time: 10/04/22 12:37 History: doing well, currently using santyl, reports no issues Wound history: had alot of fibrinous exudate at base during last visit, cleaned up at this point with Santyl Wound width: 3 cm Wound length: 2.3 cm Wound depth: 0.8 cm Drainage: none Surrounding tissue appearance: healthy Tunnelin.8 cm from 10-1 o'clock Percentage granulation tissue: 100% Assessment and Plan Assessment and plan (1) Ulcer of foot: Code(s): L97.509 - Non-pressure chronic ulcer of other part of unspecified foot with unspecified severity Status: Acute Assessment and Plan: looks much improved, will change to silver rope dressing, f/u 6 wks Review of Systems Review of Systems: All systems reviewed & are unremarkable except as noted in HPI and below Exam Const: General: cooperative, comfortable and no acute distress
== END 2022-11-20 13:21 | disposition home or self-care (01) ==
LOC: ANHWOC 07:24
PROVIDERS: PCP Family Medicine; Visit Provider Surgery
DX: E11.621 Type 2 diabetes mellitus with foot ulcer (principal); L97.509 Non-pressure chronic ulcer of other part of unspecified foot with unspecified severity
CPT/HCPCS: 99213; A9270; G0463

== ENCOUNTER 2023-03-06 14:05 | Outpatient (RCR) | payer MEDICARE, SELFPAY | END 2023-03-06 14:54 | disposition home or self-care (01) | LOC: ANHHIPT 14:05 | PROVIDERS: PCP Nurse Practitioner Family; Visit Provider Family Medicine | DX: M21.379 Foot drop, unspecified foot (principal); R53.1 Weakness | CPT/HCPCS: 99199 ==

== ENCOUNTER 2023-03-22 10:14 | Outpatient (RCR) | payer MEDICARE, SELFPAY | END 2023-03-22 10:15 | disposition home or self-care (01) | LOC: ANHHIPT 10:14 | PROVIDERS: PCP Nurse Practitioner Family; Visit Provider Family Medicine | DX: M21.379 Foot drop, unspecified foot (principal); R53.1 Weakness | CPT/HCPCS: 99199 ==

== ENCOUNTER 2023-07-12 13:23 | Outpatient (CLI) | payer MEDICARE, SELFPAY ==
--- NOTE | ~2023-07-12 | MR_ITS ---
EXAMINATION: MR brain/brain stem wo/w con DATE: 07/12/2023 14:24 INDICATION: Transient cerebral ischemic attack, unspecified. TECHNIQUE: Magnetic resonance imaging (MRI) of the brain and brainstem was performed without and with 19 mL MultiHance intravenous contrast. COMPARISON: Brain MRI 07/28/2022, head CT 07/28/2022 FINDINGS: There is an old infarct in left thalamus. There are old infarcts involving the right basal ganglia and right internal capsule. There are scattered areas of nonspecific increased T2-weighted si gnal intensity in the cerebral white matter and melita. There is no intracranial hemorrhage, acute infa rction, or abnormal intracranial mass lesion. The ventricles are normal in size. There is an old blow out fracture of medial wall of right orbit. There is mild mucosal thickening in the paranasal sinuses . The mastoid air cells are normal. . IMPRESSION: 1. Old infarcts involving the left thalamus, right basal ganglia, right internal capsule. 2. Moderate nonspecific cerebral white matter disease and pontine disease, which likely represents ch ronic small vessel ischemic disease. Reviewed, dictated and finalized at location E. IMPRESSION: 1. Old infarcts involving the left thalamus, right basal ganglia, right interna l capsule. 2. Moderate nonspecific cerebral white matter disease and pontine disease, whic h likely represents chronic small vessel ischemic disease.
== END 2023-07-12 13:24 | disposition home or self-care (01) ==
PROVIDERS: PCP Family Medicine; Visit Provider Family Medicine
DX: G45.9 Transient cerebral ischemic attack, unspecified (principal); R41.3 Other amnesia; R93.0 Abnormal findings on diagnostic imaging of skull and head, not elsewhere classified
CPT/HCPCS: 70553; A9577

== ENCOUNTER 2023-08-08 13:30 | Outpatient (RCR) | payer MEDICARE, SELFPAY ==
--- NOTE | 2023-07-12 16:29 | PTOPEVAL1 ---
Assessment and note entered by Ivet Patrick, PT Evaluation Information Assessment Status Evaluation Diagnosis left foot drop (chronic), weakness Therapy conditions oth abnormalities of gait and mobility Onset couple weeks ago Subjective Information Pt and reports has been having occasional falls. No traumatic incident to cause increased weakness currently. About a year ago cut foot on bottom of pool, and wound kept getting worse. Went to the hospital, then had home health nursing for wound care. Early spring wound care nursing ceased due to insurance no longer covering care. Now takes care of it. Pt used to play golf a year ago. notes walking is difficult and balance is not the greatest . Was not using a cane a year ago, uses 2 most of the time. Goals for therapy: Would like to be able to walk without a cane. Assessment PT Clinical Summary Pt presents with complaints of left drop foot ( chronic in nature), and weakness. He and report he has had multiple falls recently without dizziness as a factor. Pt notes he usually uses bilat straight canes to ambulate with left AFO in place but prior level of a year ago was able to walk without canes and was even playing golf. Did have a hospitalization secondary to nonhealing foot wound, had home health and is now seeking outpatient therapy. Pt demo's weakness of RIGHT ankle, decreased balance, abnormal gait patterns and did have a fall in the clinic causing a right knee abrasion. Pt will benefit from physical therapy in order to address deficits, educate pt on DME options, safety, and improve function to reduce risk of falls in the future and allow improved independence. Plan of Care Interventions Check Out for Orthotic/Pr,Neuro Re-education, Prosthetic Training,Therapeutic Activities, Therapeutic Exercise PT Services Indicated Yes Treatment Frequency and 1-2x weekly x 4 weeks Duration These treatments will address the objective and functional deficits as defined above. The patient will be advanced safely and appropriately in order for the patient to progress towards his/her prior level
--- NOTE | 2023-07-12 16:30 | OPREHPOC ---
Outpatient Therapy Plan of Care This is a Multidisciplinary Plan of Care that may contain components documented by all disciplines (PT, OT, and ST.) PT Problem 1 PT Problem #1 Knowledge Deficit PT Goal 1 Goal Pt will be independent in HEP Pt will verbalize understanding of diagnosis and prognosis Target Visit 8 PT Problem 2 PT Problem #2 Impaired Balance PT Goal 1 Goal Pt will demo 5 x sit to stand 20 seconds with or without assistive device Target Visit 16 PT Goal 2 Goal Pt will demo immediate standing balance of 10 seconds without AD with appropriate base of support Target Visit 8 PT Problem 3 PT Problem #3 Impaired Gait PT Goal 1 Goal Pt will demo 2 min walk test with LRAD of 200 ft PT Goal 2 Goal Pt will demo appropriate dorsiflexion of RLE and control with loading response phase of gait for 200 ft without cueing Target Visit 16 PT Problem 4 PT Problem #4 Impaired Strength PT Goal 1 Goal Pt will demo strength of right ankle dorsiflexion of 4/5
--- NOTE | 2023-07-18 13:00 | PCPTNOTE ---
Patient called & cancelled scheduled appointment this date
--- NOTE | 2023-08-08 14:26 | PTOPDC ---
Assessment and note entered by Ivet Patrick, PT Assessment Status Discharge Diagnosis left foot drop (chronic), weakness Onset couple weeks ago Subjective Information Pt reports wound on his foot is smaller. Currently walking with one cane because doesn't know where his other cane is. Declined Freight [employer] AFO for RLE secondary to cost. Has not had any falls since starting therapy. Has not had any almost falls since starting therapy. Pt reports feeling his balance is improved and has also been more cautions since starting therapy. Does not have a rollator. Likes his canes better than his walkers. Assessment PT Clinical Summary Pt has attended therapy consistently for balance and weakness. Demos right foot drop that has not been able to progress with therapy. Was sent referral to DME provider and pt opted not to purchase AFO for RLE secondary to cost. Demo's greatly improved 5x sit>stand coordination and met goal for speed with AD, Strength has improved overall, and almost met goal for 2 min walk test however only had one cane today versus normal 2 canes for ambulation. Appears though patient would have met 2 min walking goals with either AFO or additional cane. Thus pt appears to have met maximal therapy benefit at this time.
== END 2023-08-08 15:12 | disposition home or self-care (01) ==
LOC: ANHHIPT 13:30
PROVIDERS: PCP Family Medicine; Visit Provider Family Medicine
DX: R53.1 Weakness (principal); M21.379 Foot drop, unspecified foot
CPT/HCPCS: 97110; 97112; 97116; 97162; 97750

== ENCOUNTER 2025-05-12 09:47 | Emergency (ER) | payer MEDICARE, SELFPAY ==
[2025-05-12] VITALS (7 sets, daily range): BP systolic 114–136; BP diastolic 54–86; PULSE 56–69; RESP 14–21; TEMP 36.3–36.4; O2SAT 95–97
--- NOTE | ~2025-05-12 | XR_ITS ---
EXAMINATION: XR chest 2V DATE: 05/12/2025 11:24 INDICATION: Aspiration TECHNIQUE: frontal and lateral views of the chest were obtained. COMPARISON: Chest radiograph dated 08/01/2022 FINDINGS: Chronic elevation the right hemidiaphragm. Persistent airspace opacity lateral left lower lung zone w hich obscures the apex of the heart and the costophrenic angle and favor pericardial fat pad with ass ociated atelectasis over pneumonia. There are multiple small calcified nodules in this region along w ith calcified left hilar lymph nodes consistent with old granulomatous disease. No other airspace opa cities, pulmonary edema, pleural effusion or pneumothorax. Heart size within normal limits for AP sallie hnique. IMPRESSION: 1. Chronic elevation the right hemidiaphragm. 2. Chronic opacity at the lateral left lung base and favor paracardial fat pad and associated lingula r atelectasis over pneumonia. Reviewed, dictated and finalized at location B. IMPRESSION: 1. Chronic elevation the right hemidiaphragm. 2. Chronic opacity at the lateral left lung base and favor paracardial fat pad and associated lingular atelectasis over pneumonia.
--- NOTE | ~2025-05-12 | CT_ITS ---
EXAMINATION: CT brain wo con DATE: 05/12/2025 11:15 INDICATION: Altered mental status. Recent stroke. TECHNIQUE: Computed tomography (CT) of the head was performed without intravenous contrast. Sagittal and coronal reconstructions were performed. The mA was adjusted according to patient size. Iterative reconstruction technique was employed. The dose-length product was 605.33 mGy-cm. COMPARISON: Brain MR dated 07/12/[address] dated 07/28/2022 FINDINGS: No acute acute infarction or abnormal extra axial fluid collection. Old lacunar infarcts at the left thalamus, right bilateral basal ganglia and bilateral frontal lobe periventricular white matter. Ther e is vasogenic edema surrounding ill-defined 3 x 2 x 2 cm region of increased density in the right fr ontoparietal region which could represent either an inter parenchymal hematoma or neoplasm. There is moderate scattered white matter hypoattenuation consistent with chronic small vessel ischemic disease . Ventricles are normal and symmetric.. No mass/mass effect. Chronic blowout fracture involving the m edial wall of the right orbit. The orbits and paranasal sinuses are otherwise normal. Ethmoid air yeni ls and middle ear cavities are clear. IMPRESSION: 1. Vasogenic edema surrounding an ill-defined 3 x 2.2 cm region of increased density in the right fro ntoparietal region which could represent either an intraparenchymal hematoma or neoplasm. Recommend f urther evaluation with pre and postcontrast MRI or CT. Dr. Carney discussed these findings with Dr. Arias at at 11:34 AM. 2. Several old lacunar infarcts at the and left thalamus, right basal ganglia and bilateral frontal l obe periventricular white matter. 3. Additional moderate scattered white matter hypoattenuation consistent with chronic small vessel is chemic disease. Reviewed, dictated and finalized at location B. IMPRESSION: 1. Vasogenic edema surrounding an ill-defined 3 x 2.2 cm region of increased de nsity in the right frontoparietal region which could represent either an intrap arenchymal hematoma or neoplasm. Recommend further evaluation with pre and post contrast MRI or CT. Dr. Carney discussed these findings with Dr. Hugo ly at 11:34 AM. 2. Several old lacunar infarcts at the and left thalamus, right basal ganglia a nd bilateral frontal lobe periventricular white matter. 3. Additional moderate scattered white matter hypoattenuation consistent with c hronic small vessel ischemic disease.
--- NOTE | 2025-05-12 10:10 | ECG_ITS ---
Test Date: 2025-05-12 10:36:20 Measurements Intervals [place] Rate: 54 P: 196 CO: 316 QRS: -31 QRSD: 141 T: 60 QT: 435 QTc: 412 Interpretive Statements SINUS BRADYCARDIA WITH FIRST DEGREE AV BLOCK LEFT AXIS DEVIATION [QRS AXIS < -30] RIGHT BUNDLE BRANCH BLOCK [120+ ms QRS DURATION, UPRIGHT V1, 40+ ms S IN I/aVL/V4/V5/V6] No previous ECG available for comparison Electronically Signed On 05-12-2025 18:05:44 CDT by Juan A Cuello
--- NOTE | 2025-05-12 10:30 | ED_ITS ---
HPI - Altered Mental Status General Chief Complaint: Altered Mental Status <Ana Arias PA-C - Last Filed: 05/12/25 13:24> Stated Complaint: vomiting, AMS <SHIELA Vivas Last Filed: 05/12/25 13:24> Time Seen by Provider: 05/12/25 09:48 <SHIELA Vivas Last Filed: 05/12/25 13:24> Source: patient <SHIELA Vivas Last Filed: 05/12/25 13:24> Mode of arrival: EMS <SHIELA Vivas Last Filed: 05/12/25 13:24> Limitations: no limitations <SHIELA Vivas Last Filed: 05/12/25 13:24> History of Present Illness HPI narrative: Patient is an 84-year-old male who presents to the ED via EMS with concern for altered mental status. Patient is currently residing at [facility] after recent CVA with left-sided residual hemiparesis. Per rehab staff, patient was performing physical therapy today when he reportedly became dizzy and vomited. Staff then thought he was somewhat altered and sent him here for further evaluation. Patient states he threw up once and they became concerned. He denies current nausea or dizziness. Denies abdominal pain. Denies chest pain, shortness of breath. <SHIELA Vivas Last Filed: 05/12/25 13:24> Related Data Home Medications: Home Medications ?Medication ?Instructions ?Recorded ?Confirmed ?Last Taken ?Type aspirin 81 mg tablet,delayed 81 mg PO DAILY 07/20/22 04/24/25 07/26/22 History release (Adult Low Dose Aspirin) flash glucose scanning reader 07/12/23 02/23/25 Unknown History (FreeStyle Simba 2 [place]) amlodipine 10 mg tablet 10 mg PO DAILY 04/24/25 04/24/25 Unknown History atorvastatin 20 mg tablet (Lipitor) 20 mg PO DAILY 04/24/25 04/24/25 Unknown History bacitracin zinc 500 unit-polymyxin 1 applic topical TID 04/24/25 04/24/25 Unknown History B 10,000 unit/gram topical ointment cholecalciferol (vitamin D3) 25 25 mcg PO DAILY 04/24/25 04/24/25 Unknown History mcg (1,000 unit) capsule doxycycline hyclate 100 mg tablet 100 mg PO Q12H 04/24/25 04/24/25 Unknown History erythromycin 5 mg/gram (0.5 %) eye 1 applic RIGHT EYE TID 04/24/25 04/24/25 Unknown History ointment ezetimibe 10 mg tablet 10 mg PO DAILY 04/24/25 04/24/25 Unknown History gabapentin 100 mg capsule 100 mg PO TID 04/24/25 04/24/25 Unknown History glipizide 5 mg tablet, extended 5 mg PO QACBREAK 04/24/25 04/24/25 Unknown History release 24 hr insulin lispro 100 unit/mL 1 sliding scale dose subcut 04/24/25 04/24/25 Unknown History subcutaneous solution (Admelog DIRECTED U-100 Insulin lispro) levothyroxine 150 mcg tablet 150 mcg PO DAILY 04/24/25 04/24/25 Unknown History (Synthroid) losartan 25 mg tablet 25 mg PO DAILY 04/24/25 04/24/25 Unknown History miconazole nitrate 2 % topical 1 applic topical BID PRN rash or 04/24/25 04/24/25 Unknown History cream redness polyethylene glycol 3350 17 gram 17 g PO BID 04/24/25 04/24/25 Unknown History oral powder packet (Miralax) <Ana Arias PA-C - Last Filed: 05/12/25 13:24> Allergies/Adverse Reactions: Allergies Allergy/AdvReac Type Severity Reaction Status Date / Time No Known Allergies Allergy Verified 05/12/25 10:03 <Ana Arias PA-C - Last Filed: 05/12/25 13:24> Review of Systems 2 Review of Systems: All systems reviewed & are unremarkable except as noted in HPI. <Ana Arias PA-C - Last Filed: 05/12/25 13:24> All systems reviewed & are unremarkable except as noted in HPI and below < SHIELA Vivas Last Filed: 05/12/25 13:24> 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 Fecal incontinence Urgency TIA (transient ischemic attack) Memory loss Weakness Diabetic foot Nail fungus Ulcer of foot Hypothyroidism Peripheral neuropathy Hyperlipidemia Left foot drop TIA (transient ischemic attack) Degenerative disc disease Peripheral neuropathy Diabetes <Ana Arias PA-C - Last Filed: 05/12/25 13:24> Surgical History Surgical History: Surgical History No pertinent past surgical history <Ana Arias PA-C - Last Filed: 05/12/25 13:24> Family History Family History: Family History Mother Diabetes mellitus Father Respiratory failure <Ana Arias PA-C - Last Filed: 05/12/25 13:24> Social History Social History: Social History Social History: The patient is and lives with his . He has a son and a daughter. 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 He still continues to work in his [employer] shop. He is a lifelong nonsmoker. He does not use any alcohol marijuana or illicit drugs. Code status full code Smoking status: Never smoker Alcohol intake: never Substance use: never Do You Feel Safe in your Home?: Yes Lack of Transportation: No Lack of Food: Never True Current Housing: I Have Housing Concerned About Future Housing: No Difficulty Paying Gas/Electric Bills: No Difficulty Paying for Meds: No Currently Unemployed: No Education: Master's Degree or Higher Difficulty w/ Childcare or Family Care: No Living arrangements: with family Occupation/Education: retired Gender identity (if verbalized by the patient): Male Spiritual care concerns: No Agree to blood products: Yes <Ana Arias PA-C - Last Filed: 05/12/25 13:24> Exam 2 Narrative: GENERAL: Elderly, well appearing, obese with BMI of 30.9, non-toxic, in no acute distress. HEAD: Normocephalic, atraumatic. ENT: MMs slightly dry. RESPIRATORY: Airway patent, respirations nonlabored. Clear to auscultation bilaterally, no rales, rhonchi, wheezing. CARDIOVASCULAR: Regular rate and rhythm without murmurs, rubs, or gallops. ABDOMINAL: Soft, no tenderness throughout abdomen, nondistended. Normoactive BS. MUSCULOSKELETAL: No gross deformities. Near complete hemiplegia of left arm. Some movements of left lower extremity, but weak compared to right. Consistent with recent CVA SKIN: Warm, dry, normal color. NEURO: A&O X3. Speech clear. Slight chronic R sided facial droop r/t recent CVA. No ataxic movements. PSYCHIATRIC: Appropriate mood and affect. Normal interaction. <Ana Arias PA-C - Last Filed: 05/12/25 13:24> Course FIRE MANAGEMENT OFFICER/PA Physician Supervision This visit was performed by both a physician and an APC. I performed all aspects of the MDM as documented. <Francisco Santiago MD - Last Filed: 05/12/25 15:55> Vital Signs Vital signs: Vital Signs Temperature 97.3 F L 05/12/25 09:47 Pulse Rate 56 L 05/12/25 09:47 Respiratory Rate 19 05/12/25 09:47 Blood Pressure 114/86 05/12/25 09:47 Pulse Oximetry 96 05/12/25 09:47 Oxygen Delivery Room Air 05/12/25 09:47 Temperature 97.5 F L 05/12/25 15:01 Pulse Rate 61 05/12/25 15:01 Respiratory Rate 18 05/12/25 15:01 Blood Pressure 122/60 05/12/25 15:01 Pulse Oximetry 95 05/12/25 15:01 Oxygen Delivery Room Air 05/12/25 10:03 <Ana Arias PA-C - Last Filed: 05/12/25 13:24> Vital Signs Temperature 97.3 F L 05/12/25 09:47 Pulse Rate 56 L 05/12/25 09:47 Respiratory Rate 19 05/12/25 09:47 Blood Pressure 114/86 05/12/25 09:47 Pulse Oximetry 96 05/12/25 09:47 Oxygen Delivery Room Air 05/12/25 09:47 Temperature 97.5 F L 05/12/25 15:01 Pulse Rate 61 05/12/25 15:01 Respiratory Rate 18 05/12/25 15:01 Blood Pressure 122/60 05/12/25 15:01 Pulse Oximetry 95 05/12/25 15:01 Oxygen Delivery Room Air 05/12/25 10:03 <Francisco Santiago MD - Last Filed: 05/12/25 15:55> MDM - Altered Mental Status MDM Narrative Medical decision making narrative: Patient presented to ED with possible dizziness, nausea, vomiting, possible altered mental status from [facility]. Recent CVA with left-sided deficits. Vital signs are stable upon arrival. Patient in no acute distress. No new neurologic deficits. Consistent with recent CVA. EKG with sinus bradycardia, right bundle. No significant ST changes. No previous for comparison. Laboratory studies are fairly unremarkable. No leukocytosis or significant anemia. Stable electrolytes. Stable kidney function. Blood glucose is mildly elevated to 169. Magnesium was borderline at 1.6. Replacement given. Troponin undetectable. UA is clear. Viral swabs are negative. Lactic acid was mildly elevated at 2.9. Unclear etiology. Patient is on metformin. I am not finding any other source of infection at this time. VS not consistent with sepsis. Chest x-ray with chronic findings. CT brain showin. Vasogenic edema surrounding an ill-defined 3 x 2.2 cm region of increased density in the right frontoparietal region which could represent either an intraparenchymal hematoma or neoplasm. Recommend further evaluation with pre and postcontrast MRI or CT. Per records, patient was seen at [facility] in [facility] on 04/14/2025. Was diagnosed with hemorrhagic CVA at that time, intraparenchymal hemorrhage of right parietal lobe surrounding vasogenic edema. He was transferred to [facility] at that time prior to being transferred to [facility]. Will discuss with [facility] and review images. Discussed case with Dr. Vázquez, hospitalist @ [facility], reviewed images from 04/24/25, unable to determine if imaging today shows worsening of hematoma or not. Will transfer for neurosurgery eval. Awaiting bed placement. Patient received bed at [facility]. Awaiting transport. <Ana Arias PA-C - Last Filed: 05/12/25 13:24> Medical Records Attestation: I reviewed the patient's medical records. <Ana Arias PA-C - Last Filed: 05/12/25 13:24> Lab Data Attestation: I reviewed the patient's lab results. <Ana Arias PA-C - Last Filed: 05/12/25 13:24> Result diagrams: 05/12/25 10:43 05/12/25 10:42 <Ana Arias PA-C - Last Filed: 05/12/25 13:24> Labs: Lab Results 05/12/25 05/12/25 05/12/25 Range/Units 10:42 10:43 13:09 WBC 5.7 (4.5-10.0) K/mm3 RBC 3.99 L (4.6-6.20) M/mm3 Hgb 13.1 L (14.0-18.0) g/dL Hct 39.2 L (42.0-52.0) % MCV 98.2 (80-100) fl MCH 32.8 (26-34) pg MCHC 33.4 (32-36) g/dl RDW 12.1 (11.5-14.5) % Plt Count 179 (150-375) k/mm3 MPV 9.6 (7.4-10.4) fl Immature Gran % (Auto) 0.4 (0-0.5) % Neut % (Auto) 75.8 H (45.5-73.1) % Lymph % (Auto) 15.4 L (18.3-44.2) % [place] % (Auto) 6.3 (2.6-8.5) % Eos % (Auto) 1.6 (0-4.4) % Baso % (Auto) 0.5 (0.2-1.2) % Lymph # (Auto) 0.88 L (0.9-3.2) K/mm3 [place] # (Auto) 0.4 (0.1-0.6) K/mm3 Eos # (Auto) 0.1 (0-0.3) K/mm3 Baso # (Auto) 0.0 (0.0-0.1) K/mm3 Abs Immat Gran (auto) 0.02 (0.00-0.031) K/mm3 Absolute Neuts (auto) 4.3 (1.3-6.7) K/mm3 Absolute Nucleated RBC 0.000 (0.0-0.012) K/mm3 Nucleated RBC % 0.0 (0.0-0.2) % PT 13.5 (11.1-14.7) Seconds INR 1.0 APTT 26.3 (22.3-36.8) Seconds Sodium 136 L (137-145) mmol/L Potassium 4.3 (3.4-5.0) mmol/L Chloride 99 (98-107) mmol/L Carbon Dioxide 26 (22-30) mmol/L Anion Gap 11 (4-12) mmol/L BUN 20 (9-20) mg/dL Creatinine 0.78 (0.7-1.3) mg/dL Estim Creat Clear Calc 69 ml/min Estimated GFR > 60 (59 - ) Glucose 169 H (65-110) mg/dL Lactic Acid 2.9 H 2.2 H (0.7-2.0) mmol/L Calcium 9.5 (8.4-10.2) mg/dL Magnesium 1.6 (1.6-2.3) mg/dL Total Bilirubin 0.8 (0.2-1.3) mg/dL AST 33 (17-59) U/L ALT 41 (6-50) U/L Alkaline Phosphatase 82 (38-126) U/L Troponin I < 0.012 (0.000-0.034) ng/mL Total Protein 6.7 (6.3-8.2) g/dL Albumin 3.9 (3.5-5.1) g/dL Urine Color Yellow (Yellow) Urine Appearance Clear (Clear) Urine pH 7.0 (5.0-9.0) Ur Specific [place] 1.015 (1.001-1.035) Urine Protein Negative (Negative) mg/dL Urine Glucose (UA) Negative (Negative) mg/dL Urine Ketones Negative (Negative) mg/dL Ur Blood (Man) Negative (Negative) Urine Nitrate Negative (Negative) Urine Bilirubin Negative (Negative) Urine Urobilinogen 1.0 (<2.0) mg/dL Leukocyte Esterase Rfl Negative (Negative) ROMERO/UL Influenza A (RT-PCR) Negative (Negative) Influenza B (RT-PCR) Negative (Negative) RSV (RT-PCR) Negative (Negative) SARS-CoV-2 RNA (RT-PCR) Negative (Negative) <Ana Arias PA-C - Last Filed: 05/12/25 13:24> Lab Results 05/12/25 05/12/25 05/12/25 Range/Units 10:42 10:43 13:09 WBC 5.7 (4.5-10.0) K/mm3 RBC 3.99 L (4.6-6.20) M/mm3 Hgb 13.1 L (14.0-18.0) g/dL Hct 39.2 L (42.0-52.0) % MCV 98.2 (80-100) fl MCH 32.8 (26-34) pg MCHC 33.4 (32-36) g/dl RDW 12.1 (11.5-14.5) % Plt Count 179 (150-375) k/mm3 MPV 9.6 (7.4-10.4) fl Immature Gran % (Auto) 0.4 (0-0.5) % Neut % (Auto) 75.8 H (45.5-73.1) % Lymph % (Auto) 15.4 L (18.3-44.2) % [place] % (Auto) 6.3 (2.6-8.5) % Eos % (Auto) 1.6 (0-4.4) % Baso % (Auto) 0.5 (0.2-1.2) % Lymph # (Auto) 0.88 L (0.9-3.2) K/mm3 [place] # (Auto) 0.4 (0.1-0.6) K/mm3 Eos # (Auto) 0.1 (0-0.3) K/mm3 Baso # (Auto) 0.0 (0.0-0.1) K/mm3 Abs Immat Gran (auto) 0.02 (0.00-0.031) K/mm3 Absolute Neuts (auto) 4.3 (1.3-6.7) K/mm3 Absolute Nucleated RBC 0.000 (0.0-0.012) K/mm3 Nucleated RBC % 0.0 (0.0-0.2) % PT 13.5 (11.1-14.7) Seconds INR 1.0 APTT 26.3 (22.3-36.8) Seconds Sodium 136 L (137-145) mmol/L Potassium 4.3 (3.4-5.0) mmol/L Chloride 99 (98-107) mmol/L Carbon Dioxide 26 (22-30) mmol/L Anion Gap 11 (4-12) mmol/L BUN 20 (9-20) mg/dL Creatinine 0.78 (0.7-1.3) mg/dL Estim Creat Clear Calc 69 ml/min Estimated GFR > 60 (59 - ) Glucose 169 H (65-110) mg/dL Lactic Acid 2.9 H 2.2 H (0.7-2.0) mmol/L Calcium 9.5 (8.4-10.2) mg/dL Magnesium 1.6 (1.6-2.3) mg/dL Total Bilirubin 0.8 (0.2-1.3) mg/dL AST 33 (17-59) U/L ALT 41 (6-50) U/L Alkaline Phosphatase 82 (38-126) U/L Troponin I < 0.012 (0.000-0.034) ng/mL Total Protein 6.7 (6.3-8.2) g/dL Albumin 3.9 (3.5-5.1) g/dL Urine Color Yellow (Yellow) Urine Appearance Clear (Clear) Urine pH 7.0 (5.0-9.0) Ur Specific [place] 1.015 (1.001-1.035) Urine Protein Negative (Negative) mg/dL Urine Glucose (UA) Negative (Negative) mg/dL Urine Ketones Negative (Negative) mg/dL Ur Blood (Man) Negative (Negative) Urine Nitrate Negative (Negative) Urine Bilirubin Negative (Negative) Urine Urobilinogen 1.0 (<2.0) mg/dL Leukocyte Esterase Rfl Negative (Negative) ROMERO/UL Influenza A (RT-PCR) Negative (Negative) Influenza B (RT-PCR) Negative (Negative) RSV (RT-PCR) Negative (Negative) SARS-CoV-2 RNA (RT-PCR) Negative (Negative) <Francisco Santiago MD - Last Filed: 05/12/25 15:55> Imaging Data Attestation: I personally reviewed and interpreted this imaging study as follows: < Ana Arias PA-C - Last Filed: 05/12/25 13:24> Radiologist's impression: ITS Impressions Head CT 05/12/25 11:20 IMPRESSION: 1. Vasogenic edema surrounding an ill-defined 3 x 2.2 cm region of increased density in the right frontoparietal region which could represent either an intraparenchymal hematoma or neoplasm. Recommend further evaluation with pre and postcontrast MRI or CT. Dr. Carney discussed these findings with Dr. Arias at at 11:34 AM. 2. Several old lacunar infarcts at the and left thalamus, right basal ganglia and bilateral frontal lobe periventricular white matter. 3. Additional moderate scattered white matter hypoattenuation consistent with chronic small vessel ischemic disease. <Ana Arias PA-C - Last Filed: 05/12/25 13:24> ECG Data EKG #1: Attestation: I personally reviewed and interpreted this ECG as follows: <Ana Arias PA-C - Last Filed: 05/12/25 13:24> ECG completion date: 05/12/25 <Ana Arias PA-C - Last Filed: 05/12/25 13:24> ECG completion time: 10:36 <Ana Arias PA-C - Last Filed: 05/12/25 13:24> EKG Interpretation: bradycardia (54), sinus rhythm (1st degree AV block), non-specific ST changes and RBBB <SHIELA Vivas Last Filed: 05/12/25 13:24> Discharge Plan Discharge Clinical Impression: Lactic acidosis Intraparenchymal hematoma of brain Qualifiers: Encounter type: subsequent encounter Laterality: right Loss of consciousness presence/duration: unknown LOC status Qualified Code(s): S06.31AD - Contusion and laceration of right cerebrum with loss of consciousness status unknown, subsequent encounter <SHIELA Vivas Last Filed: 05/12/25 13:24> Patient Disposition: Acute Care Hospital <SHIELA Vivas Last Filed: 05/12/25 13:24> Condition: Stable <SHIELA Vivas Last Filed: 05/12/25 13:24> Patient Language: Hungarian <SHIELA Vivas Last Filed: 05/12/25 13:24> Prescriptions: No Action aspirin [Adult Low Dose Aspirin] 81 mg tablet,delayed release (DR/EC) 81 mg PO DAILY (DME) FreeStyle Simba 2 [place] Misc See Rx Instructions .Route Rx Instructions: As directed (DME) FreeStyle Simba 2 Sensor Kit See Rx Instructions .ROUTE .COMPLEX Qty: 1 1RF Dose Instruction: USE DIRECTED Rx Instructions: USE DIRECTED donepezil 10 mg tablet 10 mg PO QHS Qty: 90 0RF metformin 500 mg tablet 1,000 mg PO BID Qty: 360 0RF amlodipine 10 mg tablet 10 mg PO DAILY bacitracin zinc-polymyxin B 500-10,000 unit/gram ointment 1 applic topical TID Rx Instructions: x5 days doxycycline hyclate 100 mg tablet 100 mg PO Q12H Rx Instructions: x3 days erythromycin 5 mg/gram (0.5 %) ointment 1 applic RIGHT EYE TID Rx Instructions: x14 days insulin lispro [Admelog U-100 Insulin lispro] 100 unit/mL solution 1 sliding scale dose subcut DIRECTED Rx Instructions: 0-6units as directed times daily with meals and at hs losartan 25 mg tablet 25 mg PO DAILY miconazole nitrate 2 % cream 1 applic topical BID PRN (Reason: rash or redness) atorvastatin [Lipitor] 20 mg tablet 20 mg PO DAILY cholecalciferol (vitamin D3) 25 mcg (1,000 unit) capsule 25 mcg PO DAILY ezetimibe 10 mg tablet 10 mg PO DAILY gabapentin 100 mg capsule 100 mg PO TID levothyroxine [Synthroid] 150 mcg tablet 150 mcg PO DAILY glipizide 5 mg tablet extended release 24hr 5 mg PO QACBREAK polyethylene glycol 3350 [Miralax] 17 gram powder in packet 17 g PO BID <SHIELA Vivas Last Filed: 05/12/25 13:24> Follow-up/Referrals: UNKNOWN,DOCTOR [Primary Care Provider] - <Ana Arias PA-C - Last Filed: 05/12/25 13:24>
--- OUTSIDE RECORDS SUMMARY | 2025-05-12 10:35 | XMS_ITS | Referral Summary ---
Author Organization [facility] Address [address] [place] [address] Care Team Providers Care Computer System Validation Specialist Name Role Phone Erich Henderson MD Primary Care Provider [phone] Encounters Date Type Department Care Team Description 04/22/2025 Telephone [facility] Ophthalmology [facility] [address] [phone] Gualberto Baca MD 04/16/2025 Orders Only [facility] Ophthalmology [address] [phone] Gualberto Baca MD 04/13/2025 2:30 PM CDT - 04/13/2025 4:00 PM CDT Surgery [facility] ([facility]) [address] [place] [id number] Gualberto Baca MD RECONSTRUCTION LOWER EYELID 04/13/2025 4:55 PM CDT Anesthesia Event [facility] ([facility]) [address] [place] [address] Avi Clark MD DDS Emma Almodovar NP 04/13/2025 11:52 AM CDT - 04/13/2025 7:09 PM CDT Hospital Encounter [facility] ([facility]) [address] [place] [address] Gualberto Baca MD 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 [address] [place] [phone] Gualberto Baca MD 02/27/2025 Documentation [facility] [address] [phone] Anyi Hairston B.A. 02/17/2025 Documentation [facility] Ophthalmology [address] [place] [phone] Anyi Hairston B.A. from Last 3 Months Allergies Active Allergy Reactions Criticality Noted Date Comments Unclassified Drug Unknown 08/27/2023 Pt states does not have an allergy Medications aspirin 81 mg enteric coated tabletIndicatio ns:prevention of thrombosis Take 1 tablet (81 mg total) by mouth every morning Active atorvastatin (LIPITOR) 40 mg tabletIndicatio ns:hyperlipidem ia Take 1 tablet (40 mg total) by mouth every morning Active cholecalciferol (VITAMIN D-3) 1,000 unit capsuleIndicati ons:supplement Take 1 capsule (1,000 Units total) by mouth every morning Active donepeziL (ARICEPT) 10 mg tabletIndicatio ns: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 3 Active FreeStyle Simba 2 Sensor kit as directed 3 Active glipiZIDE XL (GLUCOTROL XL) 5 mg 24 hr tabletIndicatio ns:type 2 diabetes mellitus Take 1 tablet (5 mg total) by mouth every morning Active metFORMIN (GLUCOPHAGE) 500 mg tabletIndicatio ns:type 2 diabetes mellitus Take 2 tablets (1,000 mg total) by mouth 2 (two) times a day Active levothyroxine (SYNTHROID) 137 mcg tabletIndicatio ns:hypothyroidi sm Take 1 tablet (137 mcg total) by mouth residential substance abuse counselor before breakfast 5 Active cyanocobalamin, vitamin B-12, (VITAMIN B-12 ORAL)Indication s:supplement Take 1 tablet by mouth every morning Active bacitracin-poly myxin B (POLYSPORIN) ophthalmic ointment Applied to sutures and incisions 3 times a day 3.5 g 3 Active Active Problems Problem Noted Date Diagnosed Date 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 Patient does not drink Frequency of Binge Drinking Not on file 03/13 Personal Safety Answer Date Recorded Have you ever been in or are you currently in a harmful physical or emotional relationship or is someone making you feel afraid or unsafe? 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 Gender Identity Not on file Sexual Orientation Not on file Last Filed Vital Signs Vital Sign Reading Time Taken Comments Blood Pressure 157/72 04/13/2025 6:50 PM CDT Pulse 60 04/13/2025 6:50 PM CDT Temperature 36.3 C (97.3 F) 04/13/2025 6:20 PM CDT Respiratory Rate 23 04/13/2025 6:50 PM CDT Oxygen Saturation 97% 04/13/2025 6:50 PM CDT Inhaled Oxygen Concentration - - Weight 90.7 kg (200 lb) 04/13/2025 2:27 PM CDT Height 179.1 cm (5' 10.5) 04/02/2025 9:50 AM CD T Body Mass Index 28.29 04/02/2025 9:50 AM CDT Plan of Treatment Not on file Goals Goal Patient Goal Type Associated Problems Recent Progress Patient-Stated? 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 NB RECONSTRUCTION EYELID. 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 NB POCT GLUCOSE DEVICE Routine 04/13/2025 3 :54 PM CDT POCT GLUCOSE DEVICE Routine 04/13/2025 1 :17 PM CDT from Last 3 Months Results * POCT glucose (04/13/2025 6:23 PM CDT) Glucose, POC 85 70 - 199 mg/dL Blood 04/13/2025 6:23 PM CDT 04/13/2025 6:23 PM CDT Gualberto Baca MD LAB POCT ORDERABLES - DEVICE Final Result Performing Organization Address [facility] Co de Phone Number [facility] [place] [address] * POCT glucose (04/13/2025 3:54 PM CDT) Glucose, POC 108 70 - 199 mg/dL Blood 04/13/2025 3:54 PM CDT 04/13/2025 3:54 PM CDT us Gualberto Baca MD LAB POCT ORDERABLES - DEVICE Final Result Performing Organization Address [facility] [address]/ZIP Co de Phone Number [facility] [place] [address] * POCT glucose (04/13/2025 1:17 PM CDT) Glucose, POC 79 70 - 199 mg/dL Blood 04/13/2025 1:17 PM CDT 04/13/2025 1:17 PM CDT us Gualberto Baca MD LAB POCT ORDERABLES - DEVICE Final Result [facility] [place] [address] from Last 3 Months Additional Health Concerns Active Problems Noted Date Diagnosed Date Autogenerated Problem 04/13/2025 Insurance T MEDICARE [employer] MEDICARE [employer] MEDICARE Care Teams Computer System Validation Specialist Relationship Specialty Start Date End Date Erich Henderson MD [address] [place] [phone] PCP - General Family Medicine 07/27/23
--- OUTSIDE RECORDS SUMMARY | 2025-05-12 10:35 | XMS_ITS | Encounter Summary ---
Author Organization [facility] Address [facility] [place] [address] Care Team Providers Care Hide Paster Name Role Phone Yung Levin MD Primary Care Provider [phone] Erich Henderson MD Primary Care Provider [phone] Cynthia Valerio PA-C Primary Care Provider + [phone] Tash Evans Primary Care Provider [phone] Encounter Details Date Type Department Care Team (Late st Contact Info) Description 05/12/2013 Abstract [facility] CONVERSION [address] [place] [id number] , Generic MD Magalys Social History Tobacco Use Types Packs/Day Years Used Date Smoking Tobacco: Never Assessed Sex and Gender Information Value Date Recorded Sex Assigned at Male 04/14/2025 12:38 PM CDT Legal Sex Male 8:25 PM CDT Gender Identity Not on file Sexual Orientation Not on file documented as of this encounter Plan of Treatment Not on file documented as of this encounter Visit Diagnoses Not on filedocumented in this encounter Care Teams Hide Paster Relationship Specialty Start Date End Date Yung Levin MD [address] [place] [id number] PCP - General INTERNAL MEDICINE 03/12/19 08/15/22 Erich Henderson MD [address] [place] [id number] PCP - General FAMILY PRACTICE 08/16/22 07/16/24 Cynthia Valerio PA-C [address] [place] [id number] PCP - General PHYSICIAN 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
--- OUTSIDE RECORDS SUMMARY | 2025-05-12 10:35 | XMS_ITS | Clinical Summary ---
Author Organization [facility] Address [address] [place] [address] Care Team Providers Care Senior Sales Operations Analyst Name Role Phone Tash Evans Primary Care Provider [phone] Allergies No known active allergies Medications aspirin EC (ECOTRIN) 81 MG tablet Aspirin Adult Low Dose 81 MG Oral Tablet Delayed [id number] 18Active Active atorvastatin (LIPITOR) 20 MG tablet Take 1 tablet (20 mg total) by mouth daily. Active Cholecalciferol (VITAMIN D3) 25 MCG (1000 UT) Cap Vitamin D3 1000 UNIT Oral [id number] 18Active Active Continuous Blood Gluc Adobe Ball Mixer (FREESTYLE AIDAN 2 READER) Device see administration instructions. 023 Active Continuous Blood Gluc Sensor (FREESTYLE AIDAN 2 SENSOR) Misc see administration instructions. 023 Active glipiZIDE XL (GLUCOTROL XL) 5 MG 24 hr tablet TAKE 1 TABLET BY MOUTH DAILY AT 8 AM 023 Active levothyroxine (SYNTHROID) 150 MCG tablet Take 1 tablet (150 mcg total) by mouth daily. 023 Active metFORMIN (GLUCOPHAGE) 500 MG tablet Take 2 tablets (1,000 mg total) by mouth 2 (two) times daily. Active methylPREDNISol one, ODALYS, (MEDROL DOSEPAK) 4 MG tabletIndicatio ns:Pain in left lumbar region of back 6 TABLETS ON DAY ONE, 5 TABLETS DAY TWO, 4 TABLETS DAY THREE, 3 TABLETS DAY FOUR, 2 TABLETS DAY FIVE, AND 1 TABLET DAY SIX 1 each 023 Active donepezil (ARICEPT) 10 MG Tab Take 1 tablet (10 mg total) by mouth nightly at bedtime. at bedtime. Active bacitracin-poly myxin b (POLYSPORIN) ophthalmic ointment Place into the right eye 3 (three) times daily. 025 Active cephALEXin (KEFLEX) 500 MG capsule Take 1 capsule (500 mg total) by mouth every 12 (twelve) hours. 2024 Discontinued clopidogrel (PLAVIX) 75 MG tablet Take 1 tablet (75 mg total) by mouth daily. 2024 Discontinued SANTYL ointment APPLY TO AFFECTED AREA IN THE MORNING 2024 Discontinued cyclobenzaprine (FLEXERIL) 10 MG tablet Take 1 tablet (10 mg total) by mouth 2 (two) times daily. 018 2024 Discontinued doxycycline monohydrate 100 MG capsule take 1 capsule by mouth twice a day for 10 days 2024 Discontinued ezetimibe (ZETIA) 10 MG tablet Zetia 10 MG Oral [id number] 8Active 2024 Discontinued gabapentin (NEURONTIN) 100 MG capsule Take 1 capsule (100 mg total) by mouth 3 (three) times daily. 023 2024 Discontinued glimepiride (AMARYL) 2 MG tablet Glimepiride 2 MG Oral [id number] minnie 2024 Discontinued mupirocin (BACTROBAN) 2 % ointment Apply topically 2 (two) times daily. APPLY TO AFFECTED AREA 2024 Discontinued fish oil (OMEGA-3 FATTY ACID) 1000 MG Cap capsule Fish Oil 1000 MG Oral [id number] 18Active 2024 Discontinued silver sulfADIAZINE (SILVADENE) 1 % cream Silver Sulfadiazine 1 % External [id number] ve 018 2024 Discontinued vancomycin (VANCOCIN) 1 g injection 2024 Discontinued clindamycin (CLEOCIN) 300 MG capsule TAKE ONE CAPSULE TWICE A DAY FOR 10 DAYS. 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 ([facility]) 05/17/2018 Ulcer of right foot ([facility]) 05/14/2018 Impairment of balance 02/28/2016 Vestibular vertigo 02/28/2016 Encounters Date Type Department Care Team Description 04/14/2025 12:20 PM CDT - 04/14/2025 2:45 PM CDT Emergency [facility] Emergency Room [address] [place] [address] Ru Elizabeth MD Weakness Discharge Disposition: Another Health Care Institution Not Defined 04/14/2025 Travel 02/27/2025 Telephone [facility] Multispecialty Care - [facility] [address], [address] [place] [address] Nolan Ty MD Schedule Procedure 02/17/2025 11:00 AM CDT - 02/17/2025 11:59 PM CDT Hospital Encounter [facility] [id number] [place] [address] Heather Carvalho DPM Discharge Disposition: Home or Self Care (Routine Discharge) 02/17/[address] [facility] [address] [place] [address] Heather Carvalho DPM 02/17/2025 Travel from Last 3 Months Immunizations Immunization Administration Dates Next Due Fluzone High Dose - >Age 65 (Prefilled Syringe) 08/13/2018,09/10/2016,08/05/2015 Influenza Adult (Generic) 09/09/2012 Social History Tobacco Use Types Packs/Day Years Used Date Smoking Tobacco: Never Smokeless Tobacco: Never Tobacco Cessation:Counseling Given: No Alcohol Use Standard Drinks/Week Comments Not Currently 0 (1 standard drink = 0.6 oz pur e alcohol) PHQ-2 Answer Date Recorded Patient Health Questionnaire-2 Score 0 05/29/2023 Sex and Gender Information Value Date Recorded Sex Assigned at Male 04/14/2025 12:38 PM CDT Legal Sex Male 8:25 PM CDT Gender Identity Not on file Sexual Orientation Not on file Last Filed Vital Signs Vital Sign Reading Time Taken Comments Blood Pressure 116/69 04/14/2025 2:30 PM CDT Pulse 68 04/14/2025 2:30 PM CDT Temperature 36.8 C (98.2 F) 04/14/2025 2:25 PM CDT Respiratory Rate 16 04/14/2025 2:30 PM CDT Oxygen Saturation 95% 04/14/2025 2:30 PM CDT Inhaled Oxygen Concentration - - Weight 100.7 kg (222 lb) 04/14/2025 12:20 PM CDT Height 177.8 cm (5' 10) 04/14/2025 12:20 PM CDT Body Mass Index 31.85 04/14/2025 12:20 PM CDT Plan of Treatment Health Maintenance Due Date Last Done Comments Diabetes: Retinopathy Eye Exam 1958 DTaP, Tdap and Td Vaccines (1 - Tdap) 1957 Pneumococcal Vaccine: 50+ Years (1 of 2 - PCV) 1957 Zoster Vaccines (1 of 2) 1988 Annual Medicare Wellness Visit 2003 RSV Immunization or 60+ Years (1 - 1-dose 75+ series) 2013 COVID-19 Vaccine ( - season) 2024 08/21/2022, 02/27/2022, 01/16/2021, Additional history exists PHQ-2 (Physician [place]) 11/12/2024 05/29/2023 Hemoglobin A1C 02/13/2025 08/15/2024, 03/13, 03/04/2019, Additional history exists Lipid Panel 08/15/2025 08/15/2024, 03/13, 03/04/2019, Additional history exists Meningococcal B Vaccine Aged Out No l onger eligible based on patient's age to complete this topic Meningococcal Vaccine Aged Out No mark nalini eligible based on patient's age to complete this topic RSV Immunizations Under 20 Months Aged Out No longer eligible based on patient's age to complete this topic Procedures Procedure Name Priority Date/Time Associated Diagnosis Comments XR CHEST PORTABLE STAT 04/14/2025 12: 56 PM CDT CTA HEAD+NECK STAT 04/14/2025 12:[address] STROKE(HEAD WO) STAT 04/14/2025 12 :48 PM CDT TROPONIN, QUANT STAT 04/14/2025 12:33 PM CDT COMPREHENSIVE METABOLIC PANEL STAT 04/14/2025 12:33 PM CDT PARTIAL THROMBOPLASTIN TIME,PTT STAT 04/14/2025 12:33 PM CDT PROTHROMBIN TIME, VENOUS STAT 04/14/2025 12:33 PM CDT CBC W/DIFF AUTOMATED STAT 04/14/2025 12:33 PM CDT POCT GLUCOSE - DOCKED DEVICE Routine 04/14/2025 12:31 PM CDT ECG 12-LEAD Routine 04/14/2025 12:22 PM CDT XR ANKLE LT M3V Routine 02/17/2025 11:30 AM CDT Pain in left leg XR TIBIA+FIBULA LT 2V Routine 02/17/2025 11:30 AM CDT Pain in left leg LIPID PANEL Routine 08/15/2024 9:45 AM CDT Diabetic foot ulcer with osteomyelitis (CMS/HCC HHS/HCC) Foot ulcer (CMS/HCC HHS/HCC) Prostate cancer screening Mixed hyperlipidemia Routine general medical examination at a health care facility HEMOGLOBIN, GLYCOSYLATED Routine 08/15/2024 9:45 AM CDT Diabetic foot ulcer with osteomyelitis (CMS/HCC HHS/HCC) Foot ulcer (CMS/HCC HHS/HCC) Prostate cancer screening Mixed hyperlipidemia Routine general medical examination at a health care facility from Last 3 Months or Most Recently Relevant to Health Maintenance Results * XR CHEST PORTABLE (04/14/2025 12:56 PM CDT) Anatomical Region Laterality Modality Chest Radiographic Alyse ging 04/14/2025 1:44 PM CDT Impressions 04/14/2025 1:47 PM CDT IMPRESSION: No radiographic evidence is seen to suggest acute cardiopulmonary abnormality. Referred By: Interpreted By: Shayne Leiva DO, 04/14/2025 1:44 PM Narrative 04/14/2025 1:[address] [facility] [address] [address] [place] [address] Examination: XR CHEST PORTABLE Exam time: 04/14/2025 12:45 PM Clinical history: Left-sided weakness. Comparison: Chest radiographs 06/18/2016. Technique: AP radiographs of the chest. Findings: Leads overlying the chest are presumed to be external to the patient. The cardiomediastinal silhouette is normal in size. Pulmonary vasculature is appropriately distributed. The lungs are clear of active opacities. There is no sizable pleural effusion or pneumothorax. 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 Procedure Note Shayne Leiva DO - 04/14/2025 [facility] [address] [place] [id number] Examination: XR CHEST PORTABLE Exam time: 04/14/2025 12:45 PM Clinical history: Left-sided weakness. Comparison: Chest radiographs 06/18/2016. Technique: AP radiographs of the chest. Findings: Leads overlying the chest are presumed to be external to the patient. Thecardiomediastinal silhouette is normal in size. Pulmonary vasculature isappropriately distributed. The lungs are clear of active opacities.There is no sizable pleural effusion or pneumothorax. Degenerativearthritis affects the visualized lower cervical spine. IMPRESSION: No radiographic evidence is seen to suggest acute cardiopulmonaryabnormality. Referred By: Interpreted By: Shayne Leiva DO, 04/14/2025 1:44 PM Ru Elizabeth MD GENERAL IMAGING Final Result * CT STROKE(HEAD WO) (04/14/2025 12:48 PM CDT) Anatomical Region Laterality Modality Head Computed Tomogra phy 04/14/2025 1:31 PM CDT Impressions 04/14/2025 1:35 PM CDT IMPRESSION: 1. Intraparenchymal hemorrhage within the right parietal lobe with mild surrounding vasogenic edema. 2. Mild to moderate chronic small vessel ischemic change. 3. 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 Ordered By: RU ELIZABETH Interpreted By: Deep Alvarado MD, 04/14/2025 1:31 PM Narrative 04/14/2025 1:[address] [facility] [address] [facility] [place] [address] Examination: CT STROKE(HEAD WO), 04/14/2025 12:30 PM. Technique: Computed tomographic images of the head were obtained without intravenous contrast. Additional coronal and sagittal reformatted images were generated at a separate workstation. A dose lowering technique was used for this procedure, which may include, but is not limited to, dose reduction technique, automated exposure control, the use of iterative reconstruction, and ALARA (As Low As Reasonably Achievable) / Image Gently techniques. Clinical history: Left sided weakness Comparison: CT head 06/07/2023 Findings: There is a 3.1 x 2.6 cm intraparenchymal rounded hyperdensity within the subcortical white matter of the right parietal lobe (best seen on series 5 image 32, series 3 image 45), suggestive of an intraparenchymal hemorrhage. Mild surrounding hypodensity suggestive of vasogenic edema. Scattered subcortical and periventricular white matter foci demonstrating hypodensity that are nonspecific but most commonly seen in setting of chronic small vessel ischemic change. Hypodensity within the right centrum semiovale region that may represent an old infarct. The basal cisterns appear normal. Orbital contents appear normal. Mild mucosal thickening involving the right maxillary sinus. Paranasal sinuses and mastoid air cells are well aerated. Procedure Note Deep Alvarado MD - 04/14/2025 [facility] [address] [place] [address] Examination: CT STROKE(HEAD WO), 04/14/2025 12:30 PM. Technique: Computed tomographic images of the head were obtained withoutintravenous contrast. Additional coronal and sagittal reformatted imageswere generated at a separate workstation. A dose lowering technique wasused for this procedure, which may include, but is not limited to, dosereduction technique, automated exposure control, the use of iterativereconstruction, and ALARA (As Low As Reasonably Achievable) / Image Gentlytechniques. Clinical history: Left sided weakness Comparison: CT head 06/07/2023 Findings: There is a 3.1 x 2.6 cm intraparenchymal rounded hyperdensity within thesubcortical white matter of the right parietal lobe (best seen on series 5image 32, series 3 image 45), suggestive of an intraparenchymalhemorrhage. Mild surrounding hypodensity suggestive of vasogenic edema.Scattered subcortical and periventricular white matter foci demonstratinghypodensity that are nonspecific but most commonly seen in setting ofchronic small vessel ischemic change. Hypodensity within the right centrumsemiovale region that may represent an old infarct. The basal cisternsappear normal. Orbital contents appear normal. Mild mucosal thickeninginvolving the right maxillary sinus. Paranasal sinuses and mastoid aircells are well aerated. IMPRESSION: 1. Intraparenchymal hemorrhage within the right parietal lobe with mildsurrounding vasogenic edema. 2. Mild to moderate chronic small vessel ischemic change. 3. 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 Ordered By: RU ELIZABETH Interpreted By: Deep Alvarado MD, 04/14/2025 1:31 PM Ru Elizabeth MD CT Final Result * CTA HEAD+NECK (04/14/2025 12:48 PM CDT) Anatomical Region Laterality Modality Head, Neck Computed Tomogra phy 04/14/2025 1:35 PM CDT Impressions 04/14/2025 1:46 PM CDT IMPRESSION: 1. Patent proximal intracranial arterial vasculature. 2. No significant stenosis involving the proximal internal carotid arteries. Patent carotid and vertebral arteries throughout their course. 3. Redemonstrated parenchymal hemorrhage involving the subcortical white matter of the right parietal lobe. Punctate focus of curvilinear hyperdensity along the posterior margin that could represent a small amount of active bleeding. No underlying aneurysm or vascular malformation. Short interval follow up recommended for further characterization of potential continued expansion of the hematoma. Findings discussed with Dr. Elizabeth via [employer] secure messaging at the time of dictation. Ordered By: RU ELIZABETH Interpreted By: Deep Alvarado MD, 04/14/2025 1:35 PM Narrative 04/14/2025 1:[address] [facility] [address] [facility] [place] [address] Examination: CTA HEAD+NECK, 04/14/2025 12:30 PM. Technique: Computed tomographic images of the head and neck were obtained after the administration of 80 mL of Isovue-370 injected through the left antecubital fossa IV, without evidence of an adverse reaction. Additional coronal and sagittal reformatted as well as maximum intensity projection images were generated at a separate workstation. Carotid stenoses were measured according to NASCET criteria. A dose lowering technique was used for this procedure, which may include, but is not limited to, dose reduction technique, automated exposure control, the use of iterative reconstruction, and ALARA (As Low As Reasonably Achievable) / Image Gently techniques. Clinical history: L sided hemiparalysis Comparison: CT head 04/14/2024 5 Findings: CTA HEAD: The petrous and cavernous portions of the internal carotid arteries are patent. Anterior cerebral arteries are patent. Middle cerebral artery branches are patent proximally. Codominant vertebral artery posterior circulation. The basilar artery is patent. The posterior cerebral arteries are patent. Redemonstrated parenchymal hemorrhage involving the subcortical white matter of the right parietal lobe. Surrounding mild hyperdensity suggestive of vasogenic edema. Punctate focus of curvilinear hyperdensity along the posterior margin that could represent a small amount of active bleeding (best seen on series 6 image 112, series 8 image 246, series 9 image 171). No underlying aneurysm or vascular malformation. CTA NECK: Conventional 3 vessel origin arising from the aortic arch. The common carotid arteries are patent. No significant stenosis involving the proximal internal carotid arteries. Vertebral arteries are patent throughout their course. Atelectasis in the lung bases. Thyroid atrophy. No cervical chain adenopathy. Parotid and submandibular glands appear normal. No acute fracture nor destructive process of the visualized osseous structures. There is intervertebral disc height loss at C3-4 and C5-6 with endplate degenerative changes at these levels. Procedure Note Deep Alvarado MD - 04/14/2025 [facility] [address] [facility] [place] [address] Examination: CTA HEAD+NECK, 04/14/2025 12:30 PM. Technique: Computed tomographic images of the head and neck were obtainedafter the administration of 80 mL of Isovue-370 injected through the leftantecubital fossa IV, without evidence of an adverse reaction. Additionalcoronal and sagittal reformatted as well as maximum intensity projectionimages were generated at a separate workstation. Carotid stenoses weremeasured according to NASCET criteria. A dose lowering technique was usedfor this procedure, which may include, but is not limited to, dosereduction technique, automated exposure control, the use of iterativereconstruction, and ALARA (As Low As Reasonably Achievable) / Image Gentlytechniques. Clinical history: L sided hemiparalysis Comparison: CT head 04/14/2024 5 Findings: CTA HEAD: The petrous and cavernous portions of the internal carotidarteries are patent. Anterior cerebral arteries are patent. Middlecerebral artery branches are patent proximally. Codominant vertebralartery posterior circulation. The basilar artery is patent. The posteriorcerebral arteries are patent. Redemonstrated parenchymal hemorrhage involving the subcortical whitematter of the right parietal lobe. Surrounding mild hyperdensitysuggestive of vasogenic edema. Punctate focus of curvilinear hyperdensityalong the posterior margin that could represent a small amount of activebleeding (best seen on series 6 image 112, series 8 image 246, series 9image 171). No underlying aneurysm or vascular malformation. CTA NECK: Conventional 3 vessel origin arising from the aortic arch. Thecommon carotid arteries are patent. No significant stenosis involving theproximal internal carotid arteries. Vertebral arteries are patentthroughout their course. Atelectasis in the lung bases. Thyroid atrophy. No cervical chainadenopathy. Parotid and submandibular glands appear normal. No acutefracture nor destructive process of the visualized osseous structures.There is intervertebral disc height loss at C3-4 and C5-6 with endplatedegenerative changes at these levels. IMPRESSION: 1. Patent proximal intracranial arterial vasculature. 2. No significant stenosis involving the proximal internal carotidarteries. Patent carotid and vertebral arteries throughout their course. 3. Redemonstrated parenchymal hemorrhage involving the subcortical whitematter of the right parietal lobe. Punctate focus of curvilinearhyperdensity along the posterior margin that could represent a smallamount of active bleeding. No underlying aneurysm or vascularmalformation. Short interval follow up recommended for furthercharacterization of potential continued expansion of the hematoma. Findings discussed with Dr. Elizabeth via [employer] securemessaging at the time of dictation. Ordered By: RU ELIZABETH Interpreted By: Deep Alvarado MD, 04/14/2025 1:35 PM Ru Elizabeth MD CT Final Result * PARTIAL THROMBOPLASTIN TIME,PTT (04/14/2025 12:33 PM CDT) PTT 32.8 25.1 - 36.5 SEC 04/14/2025 12:44 PM CDT [facility] 04/14/2025 12:3 3 PM CDT us Ru Elizabeth MD LABORATORY Final Result Performing Organization Address [facility]/ZIP Co de Phone Number [facility] [address] [place] [address], [place] [phone] * PROTIME/INR, VENOUS (04/14/2025 12:33 PM CDT) PROTIME 11.6 9.1 - 12.4 SEC 04/14/2025 12:44 PM CDT [facility] INR 1.0 04/14/2025 12:44 PM CDT [facility] Comment: Recommend INR ranges for Oral Anticoagulant Therapy: Mechanical Cardiac Values 2.5-3.5 All others indication 2.0-3.0 04/14/2025 12:3 3 PM CDT us Ru Elizabeth MD LABORATORY Final Result Performing Organization Address [facility] Co de Phone Number [facility] [address] [place] [address], [place] [phone] * (ABNORMAL) COMPREHENSIVE METABOLIC PANEL (04/14/2025 12:33 PM CDT) GLUCOSE 151(H) 70 - 99 MG/DL 04/14/2025 12:54 PM CDT [facility] BUN 17 7 - 18 MG/DL 04/14/2025 12:54 PM CDT [facility] CREATININE S/P/B 0.93 0.7 - 1.3 MG/DL 04/14/2025 12:54 PM CDT [facility] SODIUM S/P/B 140 136 - 145 MMOL/L 04/14/2025 12:54 PM CDT [facility] POTASSIUM S/P/B 4.2 3.5 - 5.1 MMOL/L 04/14/2025 12:54 PM T [facility] CHLORIDE S/P/B 103 100 - 108 MMOL/L 04/14/2025 12:54 PM T [facility] CO2 30.3 21 - 32 MMOL/L 04/14/2025 12:54 PM T [facility] CALCIUM S/P/B 9.3 8.5 - 10.1 MG/DL 04/14/2025 12:54 PM T [facility] BILIRUBIN TOTAL S/P/B 1.1 0.2 - 1.2 MG/DL 04/14/2025 12:54 PM T [facility] TOTAL PROTEIN S/P/B 7.4 6.4 - 8.2 G/DL 04/14/2025 12:54 PM T [facility] ALBUMIN S/P/B 3.9 3.4 - 5.0 G/DL 04/14/2025 12:54 PM [facility] AST 15 15 - 37 U/L 04/14/2025 12:54 PM [facility] ALT 24 16 - 60 U/L 04/14/2025 12:54 PM [facility] ALKALINE PHOSPHATASE S/P/B 87 50 - 136 U/L 04/14/2025 12:54 PM T [facility] ANION GAP 6.7 5 - 15 MMOL/L 04/14/2025 12:54 PM T [facility] BUN CREATININE RATIO 18.3 6 - 26 04/14/2025 12:54 PM T [facility] A/G RATIO 1.1 1.0 - 2.0 RATIO 04/14/2025 12:54 PM CDT [facility] GFR ESTIMATE 80(L) >90 ML/MIN/1.7 3 M2 04/14/2025 12:54 PM CDT [facility] Comment: NOTE: eGFR is not calculated for patients <18 years of age. This is an estimated GFR calculation using the new CKD EPI creatinine equation without race and so does not require a correction factor for race. This estimated GFR should not be used for calculating drug doses. 04/14/2025 12:3 3 PM CDT Ru Elizabeth MD LABORATORY Final Result [facility] [address] [place] [address], * (ABNORMAL) CBC W/DIFF AUTOMATED (04/14/2025 12:33 PM CDT) WBC 7.70 4.4 - 11.0 x10'3/uL 04/14/2025 12:38 PM CDT [facility] RBC 4.53 4.50 - 5.90 x10'6/uL 04/14/2025 12:38 PM CDT [facility] HGB 15.4 14.0 - 17.5 G/DL 04/14/2025 12:38 PM CDT [facility] HCT 43.6 41.5 - 50.4 % 04/14/2025 12:38 PM CDT [facility] MCV 96.2(H) 80.0 - 96.0 FL 04/14/2025 12:38 PM CDT [facility] MCH 34.0(H) 26.5 - 31.4 PG 04/14/2025 12:38 PM CDT [facility] MCHC 35.3(H) 31.9 - 34.8 G/DL 04/14/2025 12:38 PM CDT [facility] RDW 12.0(L) 12.3 - 14.3 % 04/14/2025 12:38 PM CDT [facility] PLT 170 151 - 353 x10'3/uL 04/14/2025 12:38 PM T [facility] MPV 10.3 9.7 - 11.9 FL 04/14/2025 12:38 PM T [facility] RBC MORPHOLOGY NORMAL 04/14/2025 12:38 PM T [facility] PLT MORPH. NORMAL 04/14/2025 12:38 PM T [facility] WBC MORPHOLOGY NORMAL 04/14/2025 12:38 PM T [facility] LYMPHOCYTES % 19.7 15.8 - 45.0 % 04/14/2025 12:38 PM T [facility] NEUTROPHILS % 72.0(H) 42.1 - 71.9 % 04/14/2025 12:38 PM CDT [facility] MONOCYTES % 6.1 5.7 - 12.5 % 04/14/2025 12:38 PM T [facility] EOSINOPHILS 1.6 0.0 - 5.6 % 04/14/2025 12:38 PM T [facility] BASOPHILS 0.5 0.0 - 1.3 % 04/14/2025 12:38 PM T [facility] ABS. NEUTROPHILS 5.54 1.40 - 6.00 x10'3/uL 04/14/2025 12:38 PM T [facility] IMMATURE GRANS % 0.1 0.0 - 0.5 % 04/14/2025 12:38 PM T [facility] [facility]. LYMPHOCYTES 1.52 0.80 - 4.70 x10'3/uL 04/14/2025 12:38 PM CDT [facility] 04/14/2025 12:3 3 PM CDT us Ru Elizabeth MD LABORATORY Final Result Performing Organization Address [facility]/ZIP Co de Phone Number [facility] [address] [place] [address], [place] [phone] * TROPONIN, QUANT (04/14/2025 12:33 PM CDT) TROPONIN I HIGH SENSITIVITY 12 0 - 75 ng/L 04/14/2025 12:57 PM CDT [facility] Comment: HIGH DOSES OF BIOTIN, TROPONIN-SPECIFIC AUTOANTIBODIES, AND ANTIBODY THERAPY CONTAINING HAMA MAY INTERFERE WITH THIS TEST RESULT. CORRELATION TO CLINICAL HISTORY AND PRESENTATION RECOMMENDED. 04/14/2025 12:3 3 PM CDT us Ru Elizabeth MD LABORATORY Final Result Performing Organization Address [facility] Co de Phone Number [facility] [address] [place] [address], [place] [phone] * (ABNORMAL) POCT glucose (04/14/2025 12:31 PM CDT) GLUCOSE POC 149(H) 70 - 110 mg/dL 04/14/2025 12:32 PM CDT [facility] 04/14/2025 12:3 1 PM CDT us Ru Elizabeth MD POCT ORDERABLES - DEVICE Final R esult Performing Organization Address [facility]/ZIP Co de Phone Number [facility] [address] [place] [address], [place] [phone] * ECG 12 lead (04/14/2025 12:22 PM CDT) 04/14/2025 12:2 2 PM CDT Narrative [facility] ([facility]) RAD - 04/20/2025 1:52 PM CDT [facility] Test Date: 2025-04-14 Pat Name: CHING MAC Department: 85 Room: EXAM 101 Gender: Male 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1940 Requested By: RU ELIZABETH Order Number: [id number] Reading MD: Harry More Measurements Intervals [place] Rate: 50 P: -16 CA: 328 QRS: -36 QRSD: 144 T: 54 QT: 477 QTc: 439 Interpretive Statements SINUS BRADYCARDIA WITH FIRST DEGREE AV BLOCK LEFT AXIS DEVIATION [QRS AXIS < -30] RIGHT BUNDLE BRANCH BLOCK [120+ ms QRS DURATION, UPRIGHT V1, 40+ ms S IN I/aVL/V4/V5/V6] Compared to ECG 04/04/2019 09:52:58 Left-axis deviation now present Right bundle-branch block now present T-wave abnormality no longer present Procedure Note Harry More MD - 04/20/2025 [facility] Test Date: 2025-04-14 Pat Name: CHING MAC Department: 85 Room: EXAM 101 Gender: Male 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1940 Requested By: RU ELIZABETH Order Number: [id number] Reading MD: Harry More Measurements Intervals [place] Rate: 50 P: -16 CA: 328 QRS: -36 QRSD: 144 T: 54 QT: 477 QTc: 439 Interpretive Statements SINUS BRADYCARDIA WITH FIRST DEGREE AV BLOCK LEFT AXIS DEVIATION [QRS AXIS < -30] RIGHT BUNDLE BRANCH BLOCK [120+ ms QRS DURATION, UPRIGHT V1, 40+ ms SIN I/aVL/V4/V5/V6] Compared to ECG 04/04/2019 09:52:58 Left-axis deviation now present Right bundle-branch block now present T-wave abnormality no longer present us Ru Elizabeth MD ECG ORDERABLES Final Result [facility] ([facility] RAD * XR TIBIA+FIBULA LT 2V (02/17/2025 11:30 AM CDT) Anatomical Region Laterality Modality TibFib Radiographic Alyse ging 02/17/2025 1:02 PM CDT Impressions 02/17/2025 1:04 PM CDT IMPRESSION: 1. No acute findings. Please see same-day left ankle dictation Ordered By: HEATHER CARVALHO Interpreted By: Radha Duke, 02/17/2025 1:02 PM Narrative 02/17/2025 1:[address] [place] [address] IMAGING STUDIES: XR TIBIA+FIBULA LT 2V DATE: 02/17/2025 11:11 AM COMPARISON: No comparisons. CLINICAL HISTORY: pain in left leg . FINDINGS: There is no evidence of acute fracture, dislocation, or osseous erosion. Osteopenia limits exam No radiopaque foreign bodies or abnormal soft tissue calcifications noted. Overlying vascular calcifications. Probable old healed fracture of the proximal shaft of the left fibula. Procedure Note Jonathan Duke MD - 02/17/2025 [place] [address] [facility] [place] [address] IMAGING STUDIES: XR TIBIA+FIBULA LT 2V DATE: 02/17/2025 11:11 AM COMPARISON: No comparisons. CLINICAL HISTORY: pain in left leg . FINDINGS: There is no evidence of acute fracture, dislocation, or osseous erosion.Osteopenia limits exam No radiopaque foreign bodies or abnormal soft tissue calcifications noted.Overlying vascular calcifications. Probable old healed fracture of the proximal shaft of the left fibula. IMPRESSION: 1. No acute findings. Please see same-day left ankle dictation Ordered By: HEATHER CARVALHO Interpreted By: Radha Duke, 02/17/2025 1:02 PM Heather Carvalho DPM GENERAL IMAGING Final Result * XR ANKLE LT M3V (02/17/2025 11:30 AM CDT) Anatomical Region Laterality Modality Ankle Radiographic Alyse ging 02/17/2025 1:04 PM CDT Impressions 02/17/2025 1:08 PM CDT =====IMPRESSION:===== No acute fracture or dislocation.. 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 Degenerative changes. Ordered By: HEATHER CARVALHO Interpreted By: Radha Duke, 02/17/2025 1:04 PM Narrative 02/17/2025 1:[address] [facility] [address] [facility] [place] [address] Examination:Left Ankle Exam date/time: 02/17/2025 11:11 AM Reason For Exam: pain in left leg No given history of trauma. Comparison: Left foot series of July 17, 2023 Technique: 3 views. Findings: No significant soft tissue swelling. Exam is limited due to osteopenia No evidence of an osteochondral lesion of the talus. Ankle mortise is grossly well maintained.. 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 Mild calcification of the intraosseous ligament at the distal left lower leg. No evidence of an acute fracture or dislocation... Mild degenerative change about the ankle. Stable moderately large plantar calcaneal spur. Small Achilles tendon insertion spur. Moderate overlying vascular calcifications. Procedure Note Jonathan Duke MD - 02/17/2025 [facility] [address] [place] [address] Examination:Left Ankle Exam date/time: 02/17/2025 11:11 AM Reason For Exam: pain in left leg No given history of trauma. Comparison: Left foot series of July 17, 2023 Technique: 3 views. Findings: No significant soft tissue swelling. Exam is limited due to osteopenia No evidence of an osteochondral lesion of the talus. Ankle mortise isgrossly well maintained.. 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 Mild calcification of the intraosseous ligament at the distalleft lower leg. No evidence of an acute fracture or dislocation... Mild degenerativechange about the ankle. Stable moderately large plantar calcaneal spur. Small Achilles tendoninsertion spur. Moderate overlying vascular calcifications. =====IMPRESSION:===== No acute fracture or dislocation.. 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 Degenerative changes. Ordered By: HEATHER CARVALHO Interpreted By: Radha Duke, 02/17/2025 1:04 PM Heather Carvalho DPM GENERAL IMAGING Final Result * (ABNORMAL) HEMOGLOBIN, GLYCOSYLATED (08/15/2024 9:45 AM CDT) HGB A1C 6.0(H) <5.7 % 08/15/2024 10:17 AM CDT [facility] Comment: INCREASED RISK OF DIABETES <5.7% NON-DIABETES 5.7-6.4% INCREASED RISK FOR FUTURE DIABETES > OR = 6.5 CONSISTENT WITH DIABETES STANDARDS OF MEDICAL CARE IN DIABETES-2010 DIABETES CARE, 33(SUPP 1): S1-S61,2009 ESTIMATED AVG GLUCOSE 126 mg/dL 08/15/2024 10:17 AM CDT [facility] 08/15/2024 9:45 AM CDT T[facility] Final Result [facility] [address] [place] [address], * LIPID PANEL (08/15/2024 9:45 AM CDT) CHOLESTEROL 127 <200.0 MG/DL 08/15/2024 10:24 AM CDT [facility] TRIGLYCERIDES 108 <150 MG/DL 08/15/2024 10:24 AM T [facility] HDL 48 >40.0 MG/DL 08/15/2024 10:24 AM T [facility] LDL (CALCULATED) 57 <100 MG/DL 08/15/20 10:24 AM CDT [facility] NON HDL CHOLESTEROL 79 <130 MG/DL 08/15 10:24 AM T [facility] CHOL/HDL RATIO 2.6 0.0 - 4.5 08/15/2024 10:24 AM T [facility] VLDL CALCULATION 22 5 - 55 MG/DL 08/15/2024 10:24 AM T [facility] LIPID INTERPRETATION 08/15/2024 10:24 AM T [facility] Comment: NIH CONCENSUS REPORT RECOMMENDATIONS: ADULT CHILD LOW RISK: CHOLESTEROL <200 <170 TRIGLYCERIDE <150 --- HDL >=60 --- LDL <100 <110 BORDERLINE: CHOLESTEROL 200-239 170-199 TRIGLYCERIDE 150-199 --- HDL 40-59 --- LDL 100-159 110-129 HIGH RISK: CHOLESTEROL >=240 >=200 TRIGLYCERIDE >=200 --- HDL <40 --- LDL >=160 >=130 08/15/2024 9:45 AM CDT us T[facility] Final Result [facility] [address] [place] [address], from Last 3 Months or Most Recently Relevant to Health Maintenance Insurance [employer] Care Teams Senior Sales Operations Analyst Relationship Specialty Start Date End Date Tash Evans PA [address] [place] [address] [phone] PCP - General PHYSICIAN SUBSTATION OPERATOR 02/17/25
--- OUTSIDE RECORDS SUMMARY | 2025-05-12 10:35 | XMS_ITS | Encounter Summary ---
Author Organization [facility] Address [address] [place] [address] Care Team Providers Care Scout Leaser Name Role Phone Erich Henderson MD Primary Care Provider + [phone] Cynthia Valerio PA-C Primary Care Provider + [phone] Tash Evans Primary Care Provider [phone] Encounter Details Date Type Department Care Team (Late st Contact Info) Description 08/16/2022 Therapy Plan [facility] Day [facility] [address] [place] [address] Erich Henderson MD [facility] [place] [address] Social History Tobacco Use Types Packs/Day Years Used Date Smoking Tobacco: Never Assessed Sex and Gender Information Value Date Recorded Sex Assigned at Male 04/14/2025 12:38 PM CDT Legal Sex Male 8:25 PM CDT Gender Identity Not on file Sexual Orientation Not on file COVID-19 Exposure Response Date Recorded In the last 10 days, have yo u been in contact with someone who was confirmed or suspected to have Coronavirus/COVID-19? No / Unsure 08/16/2022 2:06 PM CDT documented as of this encounter Plan of Treatment Not on file documented as of this encounter Visit Diagnoses Diagnosis Admission for fitting and adjustment of vascular catheter- Primary Fitting and adjustment of vascular catheter documented in this encounter Care Teams Scout Leaser Relationship Specialty Start Date End Date Erich Henderson MD [address] [place] [phone] PCP - General FAMILY PRACTICE 08/16/22 07/16/24 Cynthia Valerio PA-C [address] [place] [id number] PCP - General PHYSICIAN SUPERVISORY LIFEGUARD 07/17/24 02/16/25 Tash Evans PA [address] [place] [phone] PCP - General PHYSICIAN SUPERVISORY LIFEGUARD 02/17/25 documented as of this encounter
--- OUTSIDE RECORDS SUMMARY | 2025-05-12 10:35 | XMS_ITS | Clinical Summary ---
Author Organization [facility] Address [address] [place] [phone] Care Team Providers Care Excelsior Machine Operator Name Role Phone Erich Henderson MD Primary Care Provider [phone] Allergies Active Allergy Reactions Criticality Noted Date [...] 1 tablet (137 mcg total) by mouth account executive before breakfast 5 Active cyanocobalamin, vitamin B-12, (VITAMIN B-12 ORAL)Indication s:supplement Take 1 tablet by mouth every morning Active bacitracin-poly myxin B (POLYSPORIN) ophthalmic ointment Applied to sutures and incisions 3 times a day 3.5 g 3 5 Active Active Problems Problem Noted Date Diagnosed Date 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 Dizziness 02/28/2016 Impairment of balance 02/28/2016 Vestibular vertigo 02/28/2016 Sensorineural hearing loss, asymmetrical 015 Assessment & Plan (11/21/2019 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): Assessment/Plan: Cerumen Impaction-Removed -PRN Encounters Date Type Department Care Team Description 04/22/2025 Telephone [facility] Ophthalmology [address] [place] [phone] Gualberto Baca MD 04/16/2025 Orders Only [facility] Ophthalmology [address] [place] [phone] Gualberto Baca MD 04/13/2025 4:55 PM CDT Anesthesia Event [facility] ([facility]) [address] [place] [phone] Avi Clark MD DDS Meiners, Alea Marie, NP 04/13/2025 2:30 PM CDT - 04/13/2025 4:00 PM CDT Surgery [facility] ([facility]) [address] [place] [address] Gualberto Baca MD RECONSTRUCTION LOWER EYELID 04/13/2025 11:52 AM CDT - 04/13/2025 7:09 PM CDT Hospital Encounter [facility] ([facility]) [address] [place] [phone] Gualberto Baca MD 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 02/17/2025 Documentation [facility] [address] [phone] Anyi Hairston B.A. 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 Gender Identity Not on file Sexual Orientation Not on file Obstetrics History Last Filed Vital Signs Vital Sign Reading [...] 04/02/2025 9:50 AM CDT Plan of Treatment Health Maintenance Due Date Last Done Comments Depression Screening 1940 DTaP/Tdap/Td Vaccine (1 - Tdap) 1949 Hepatitis B Screening 1956 Pneumococcal vaccine 65+ (1 of 1 - PCV) 1988 Zoster Vaccine (1 of 2) 1988 Well Visit 65+ 2003 Covid-19 Vaccine (2 - 2023-2 5 season) 2024 09/10/2021 Influenza Vaccine (Season Ended) 2025 08/13/2018, 09/10/2016, 08/05/2015, Additional history exists Fall Risk Assessment 04/13/2026 04/13/2025 Goals Goal Patient Goal Type Associated Problems [...] 6:23 PM CDT 04/13/2025 6:23 PM CDT us Gualberto Baca MD LAB POCT ORDERABLES - DEVICE Final Result Performing Organization Address [facility] de Phone Number [facility] [place] [address] * POCT glucose (04/13/2025 3:54 PM CDT) Glucose, POC 108 70 - 199 mg/dL Blood 04/13/2025 3:54 PM CDT 04/13/2025 3:54 PM CDT us Gualberto Baca MD LAB POCT ORDERABLES - DEVICE Final Result Performing Organization Address [facility] de Phone Number [facility] [place] [address] * POCT glucose (04/13/2025 1:17 PM CDT) Glucose, POC 79 70 - 199 mg/dL Blood 04/13/2025 1:17 PM CDT 04/13/2025 1:17 PM CDT Gualberto Baca MD LAB POCT ORDERABLES - DEVICE Final Result Performing Organization Address [facility] [place] [address] from Last 3 Months Additional Health Concerns Active Problems Noted Date Diagnosed Date Autogenerated Problem 04/13/2025 Insurance AETNA MEDICARE AETNA MEDICARE AETNA MEDICARE Care Teams Excelsior Machine Operator Relationship Specialty Start Date End Date Erich Henderson MD [address] [place] [address] PCP - General Family Medicine 07/27/23
[2025-05-12] MEDS: SODIUM CHLORIDE 0.9% IV 1,000 ML 999 ML IV CONT (10:42)
[2025-05-12 10:55] LABS: Hematocrit 39.2 % (42.0-52.0); Hemoglobin 13.1 g/dL (14.0-18.0); Immature Granulocyte Percent A 0.4 % (0-0.5); Lymphocytes Absolute Auto 0.88 K/mm3 (0.9-3.2); Mean Corpuscular HGB Conc 33.4 g/dl (32-36); Mean Corpuscular Hemoglobin 32.8 pg (26-34); Mean Corpuscular Volume 98.2 fl (80-100); Nucleated Red Blood Cells Absolute Auto 0.000 K/mm3 (0.0-0.012); Nucleated Red Blood Cells Perc 0.0 % (0.0-0.2); Platelet Count Result 179 k/mm3 (150-375); Red Blood Count 3.99 M/mm3 (4.6-6.20); White Blood Count 5.7 K/mm3 (4.5-10.0)
[2025-05-12 11:01] LABS: Add Urine Microscopic? NO; Appearance Urine Clear (Clear); Glucose Urine UA Negative (Negative); Leukocyte Esterase Ur Negative LEU/UL (Negative); Nitrate Urine Negative (Negative); Specific Grav Ur 1.015 (1.001-1.035)
[2025-05-12 11:09] LABS: Alanine Aminotransferase 41 U/L (6-50); Albumin Level 3.9 g/dL (3.5-5.1); Alkaline Phosphatase 82 U/L (38-126); Anion Gap 11 mmol/L (4-12); Aspartate Amino Transferase 33 U/L (17-59); Bilirubin,Total 0.8 mg/dL (0.2-1.3); Blood Urea Nitrogen 20 mg/dL (9-20); Calcium 9.5 mg/dL (8.4-10.2); Carbon Dioxide 26 mmol/L (22-30); Chloride 99 mmol/L (98-107); Estimated CRCL calculation 69 ml/min; Estimated Glomerular Filt Rate > 60; Glucose 169 mg/dL (65-110); Magnesium 1.6 mg/dL (1.6-2.3); Potassium 4.3 mmol/L (3.4-5.0); Sodium 136 mmol/L (137-145); Total Protein 6.7 g/dL (6.3-8.2)
[2025-05-12 11:10] LABS: INR 1.0; Prothrombin Time 13.5 Seconds (11.1-14.7)
[2025-05-12 11:11] LABS: Partial Thromboplastin Time 26.3 Seconds (22.3-36.8)
[2025-05-12 11:19] LABS: Troponin I < 0.012 ng/mL (0.000-0.034)
[2025-05-12] MEDS: MAGNESIUM SULF 2 GM/WATER 50ML 2 GM/50 ML BAG IVPB (11:28)
[2025-05-12 11:37] LABS: Influenza A QL RT-PCR Negative (Negative); Influenza B QL RT-PCR Negative (Negative); RSV RNA, RT-PCR Negative (Negative); SARS-CoV-2 RNA PCR Negative (Negative)
--- NOTE | 2025-05-12 13:19 | PC.NURSE ---
This RN called [facility] spoke with Carey BENAVIDES and gave update regarding pt status including that he is to be transferred to [facility]
== END 2025-05-12 15:04 | disposition short-term general hospital (02) ==
PROVIDERS: Emergency Provider Physician Assistant
DX: I61.8 Other nontraumatic intracerebral hemorrhage (principal); G81.94 Hemiplegia, unspecified affecting left nondominant side; G93.6 Cerebral edema; E87.20 Acidosis, unspecified; Z11.52 Encounter for screening for COVID-19; I50.9 Heart failure, unspecified; I11.0 Hypertensive heart disease with heart failure; F01.50 Vascular dementia, unspecified severity, without behavioral disturbance, psychotic disturbance, mood disturbance, and anxiety; E03.9 Hypothyroidism, unspecified; E78.5 Hyperlipidemia, unspecified; E11.42 Type 2 diabetes mellitus with diabetic polyneuropathy; Z85.828 Personal history of other malignant neoplasm of skin; Z79.82 Long term (current) use of aspirin; Z79.84 Long term (current) use of oral hypoglycemic drugs; Z79.899 Other long term (current) drug therapy; Z79.4 Long term (current) use of insulin
CPT/HCPCS: 36415; 70450; 71046; 80053; 81003; 83605; 83735; 84484; 85025; 85610; 85730; 87637; 93005; 96361; 96365; 99285; J3475; J7030